=== PATIENT | female | born 1940 | race Caucasian/White ===

== ENCOUNTER 2024-07-10 11:24 | Outpatient (CLI) | payer MEDICARE, BC ==
[~2024-07-10 11:24] MED LIST: iohexol 350MG/ML 100ml bottle IV ONE
[2024-07-10 11:54] LABS: BASOPHILS # (AUTO) 0.1 X10'3 (0-0.2); BASOPHILS % (AUTO) 0.6 % (0-1); EOSINOPHILS # (AUTO) 0.2 X10'3 (0-0.9); EOSINOPHILS % (AUTO) 1.8 % (0-6); HEMATOCRIT 33.2 % (35.0-45.0); HEMOGLOBIN 10.5 g/dl (12.0-16.0); LYMPHOCYTES # (AUTO) 1.6 X10'3 (1.1-4.8); LYMPHOCYTES % (AUTO) 17.7 % (21-51); MEAN CORPUSCULAR HGB CONC 31.6 g/dL (33.0-36.5); MEAN PLATELET VOLUME 8.7 FL (7.4-10.4); MONOCYTES # (AUTO) 0.6 X10'3 (0-0.9); MONOCYTES % (AUTO) 6.9 % (2-12); NEUTROPHILS # (AUTO) 6.4 X10'3 (1.8-7.7); PLATELET COUNT 211 X10'3 (140-440); RED CELL DISTRIBUTION WIDTH 20.2 % (11.5-14.5); WHITE BLOOD COUNT 8.8 X10'3 (4.5-11.0)
[2024-07-10 12:05] LABS: APTT 35 SECONDS (22-32); INR 2.4 INR; PROTHROMBIN TIME 23.3 SECONDS (9.0-12.0)
[2024-07-10 12:13] LABS: ANISOCYTOSIS 3+; MICROCYTOSIS 1+; PLATELET ESTIMATE NORMAL
[2024-07-10 12:14] LABS: ACANTHOCYTES FEW; ELLIPTOCYTES 1+; HYPOCHROMASIA 1+
[2024-07-10 12:43] LABS: ALANINE AMINOTRANSFERASE 16 U/L (12-78); ALBUMIN 3.1 G/DL (3.4-5.0); ALBUMIN/GLOBULIN RATIO 0.9 (1.1-1.5); ALKALINE PHOSPHATASE 75 IU/L (46-116); ANION GAP 11 (8-16); ASPARTATE AMINO TRANSFERASE 21 U/L (10-37); BILIRUBIN,TOTAL 0.9 MG/DL (0.1-1.0); BLOOD UREA NITROGEN 38 MG/DL (7-18); BUN/CREATININE RATIO 31.1 (10.0-20.0); CALCIUM 8.2 MG/DL (8.5-10.1); CHLORIDE 106 MMOL/L (99-107); CREATININE 1.22 MG/DL (0.40-0.90); GLUCOSE 114 MG/DL (70-104); POTASSIUM 4.1 MMOL/L (3.5-5.1); SODIUM 141 MMOL/L (135-145); TOTAL CARBON DIOXIDE 24.1 MMOL/L (24-32); TOTAL PROTEIN 6.5 G/DL (6.4-8.2); eGFR 42 ML/MIN
[2024-07-10 12:51] LABS: PRO BRAIN NATRIURETIC PEPTIDE 9631 PG/ML (0-450)
[2024-07-17] MEDS ORDERED: LISI40TA13 PO (10:45)
[2024-07-17] MEDS ORDERED: FURO-150 PO (10:45)
[2024-07-17] MEDS ORDERED: POTA20PA40 PO (10:45)
[2024-07-17] MEDS ORDERED: EMPA25TA PO (10:45)
[2024-07-17] MEDS ORDERED: CLOP-32 PO (10:45)
[2024-07-17] MEDS ORDERED: ATOR40TA PO (10:45)
[2024-07-17] MEDS ORDERED: SEMA1PEN3 SUBCUT (10:45)
[2024-07-17] MEDS ORDERED: FLUT1BLS13 INH (10:45)
[2024-07-17] MEDS ORDERED: WARF2.5T82 PO (10:45)
[2024-07-17] MEDS ORDERED: CARSR60C PO (10:45)
[2024-07-17] MEDS ORDERED: INSU100V41 (10:45)
== END 2024-07-10 23:59 | disposition home or self-care (01) ==
LOC: RAD 11:24
PROVIDERS: ATTEND Internal Medicine Cardiovascular Disease
DX: I65.23 Occlusion and stenosis of bilateral carotid arteries (principal); I35.0 Nonrheumatic aortic (valve) stenosis; R06.02 Shortness of breath; K57.30 Diverticulosis of large intestine without perforation or abscess without bleeding; I51.7 Cardiomegaly; J98.11 Atelectasis; J18.1 Lobar pneumonia, unspecified organism; K86.2 Cyst of pancreas; R59.0 Localized enlarged lymph nodes
CPT/HCPCS: 36415; 71046; 71275; 74174; 75572; 80053; 83880; 85008; 85025; 85610; 85730; 93880; Q9967

== ENCOUNTER 2024-07-25 05:24 | Inpatient (IN) | payer MEDICARE, BC ==
[2024-07-17 11:02] LABS: BILIRUBIN,URINE NEGATIVE (Neg); CLARITY,URINE SLIGHTLY CLOUDY (Clear); COLOR,URINE YELLOW (Yellow); GLUCOSE, URINE >=1000 mg/dl (Neg); KETONES,URINE NEGATIVE (Neg); LEUKOCYTE ESTERASE ,URINE NEGATIVE (Neg); NITRITES, URINE NEGATIVE (Neg); OCCULT BLOOD,URINE NEGATIVE (Neg); PH,URINE 5.5 (4.8-8.0); PROTEIN,URINE NEGATIVE (Neg); UROBILINOGEN,URINE 0.2 E.U/dL (0.2-1.0)
[2024-07-17 11:03] LABS: BASOPHILS # (AUTO) 0.1 X10'3 (0-0.2); BASOPHILS % (AUTO) 0.7 % (0-1); EOSINOPHILS # (AUTO) 0.2 X10'3 (0-0.9); EOSINOPHILS % (AUTO) 2.9 % (0-6); LYMPHOCYTES # (AUTO) 1.1 X10'3 (1.1-4.8); LYMPHOCYTES % (AUTO) 14.2 % (21-51); MEAN CORPUSCULAR HGB CONC 30.9 g/dL (33.0-36.5); MEAN CORPUSCULAR VOLUME 77.7 FL (78-98); MEAN PLATELET VOLUME 9.2 FL (7.4-10.4); MONOCYTES # (AUTO) 0.6 X10'3 (0-0.9); MONOCYTES % (AUTO) 7.5 % (2-12); NEUTROPHILS # (AUTO) 5.7 X10'3 (1.8-7.7); NEUTROPHILS % (AUTO) 74.7 % (42-75); PRE OP HEMATOCRIT 34.3 % (35.0-45.0); PRE OP PLATELET COUNT 186 X10'3 (140-440); PRE OP WHITE BLOOD COUNT 7.6 10'3 (4.8-10.8); RED BLOOD COUNT 4.41 X10'6 (4.20-5.60); RED CELL DISTRIBUTION WIDTH 20.6 % (11.5-14.5)
[2024-07-17 11:07] LABS: PRE OP HEMOGLOBIN 10.6 g/dL (12.0-16.0)
[2024-07-17 11:12] LABS: UA COLLECTION TYPE VOIDED
[2024-07-17 11:23] LABS: ANISOCYTOSIS 3+; MICROCYTOSIS 1+; PLATELET ESTIMATE NORMAL
[2024-07-17 11:24] LABS: ELLIPTOCYTES FEW
[2024-07-17 11:25] LABS: PRE OP PROTIME 28.2 SECONDS (9.0-12.0)
[2024-07-17 11:26] LABS: BACTERIA,URINE 4+ /HPF (Neg); SQUAMOUS EPITHELIAL CELL,UR FEW /LPF (FEW)
[2024-07-17 11:28] LABS: RBC,URINE 0-2 /HPF (0-2)
[2024-07-17 11:29] LABS: WBC CLUMPS,URINE FEW /HPF (NEGATIVE)
[2024-07-17 11:30] LABS: TRANSITIONAL EPI CELLS,URINE FEW /HPF
[2024-07-17 11:33] LABS: PRE OP INR 2.9 INR
[2024-07-17 11:44] LABS: ALBUMIN 3.2 G/DL (3.4-5.0); ALBUMIN/GLOBULIN RATIO 0.8 (1.1-1.5); ALKALINE PHOSPHATASE 65 IU/L (46-116); BLOOD UREA NITROGEN 33 MG/DL (7-18); BUN/CREATININE RATIO 33.7 (10.0-20.0); CALCIUM 8.3 MG/DL (8.5-10.1); CHLORIDE 106 MMOL/L (99-107); CREATININE 0.98 MG/DL (0.40-0.90); PRE OP ANION GAP 9 (8-16); PRE OP AST 14 U/L (10-37); PRE OP BILIRUB, TOTAL 1.3 MG/DL (0.0-1.0); PRE OP GLUCOSE 116 MG/DL (70-104); PRE OP POTASSIUM 3.4 MMOL/L (3.4-5.1); PRE OP SODIUM 143 MMOL/L (135-145); TOTAL CARBON DIOXIDE 27.6 MMOL/L (24-32); eGFR 54 ML/MIN
[2024-07-17 12:30] LABS: PRE OP ALT 19 U/L (30-65); PRO BRAIN NATRIURETIC PEPTIDE 11791 PG/ML (0-450)
[~2024-07-25] VITALS: Ht 162.6 cm; Wt 80.1 kg
[2024-07-25] VITALS (16 sets, daily range): BP systolic 92–154; BP diastolic 60–82; PULSE 59–120; RESP 13–20; TEMP 97–97.5; O2SAT 92–99
[~2024-07-25 05:24] MED LIST changes: +ATOR40TA PO; +CLOP-32 PO; +DILT360C52 PO; +EMPA25TA PO; +FLUT1BLS13 INH; +FURO-150 PO; +INSU100V41; +LISI40TA13 PO; +POTA-208 PO; +SEMA1PEN3 SUBCUT; +WARF2.5T82 PO; -iohexol 350MG/ML 100ml bottle IV ONE
[2024-07-25] MEDS: aspirin 325mg tablet PO ONE (05:30)
[2024-07-25] MEDS: DOCUMENT DATE & TIME OF BETA-BLOCKER PO ONE (05:30)
[2024-07-25] MEDS: famotidine 20mg tablet PO ONE (05:30)
[2024-07-25] MEDS ORDERED: protamine sulfate 10mg/ml inj. ONE (06:19)
[2024-07-25] MEDS ORDERED: iohexol 350MG/ML 100ml bottle IV ONE ×2 (06:39→12:49)
[2024-07-25] MEDS ORDERED: heparin 1,000 UNITS/NS 500ml 1,500 ML ONE ×2 (06:40→12:49)
[2024-07-25] MEDS ORDERED: LIDOcaine 1% 30ml preserv. free vial ONE ×2 (06:48→12:49)
[2024-07-25] MEDS: VANCOMYCIN/H2O 1.5g/300mL PB 300 ML IV ONE (06:55)
[2024-07-25] MEDS: ringers solution, lacted 1,000 ML IV SCH (06:55)
[2024-07-25] MEDS: furosemide 40mg/4ml inj IV ONE ×2 (07:12→15:45)
[2024-07-25] MEDS: ondansetron/PF 4mg/2ml inj IV PRN (07:12)
[2024-07-25] MEDS: diltiazem 5mg/ml 5ml inj. IV ONE (07:19)
[2024-07-25 07:26] LABS: INR 2.3 INR; PROTHROMBIN TIME 22.8 SECONDS (9.0-12.0)
[2024-07-25 07:59] LABS: PRE OP PARTIAL THROMB. TIME 43 SECONDS (22-32)
[2024-07-25] MEDS ORDERED: CALCIUM GLUC 1gm/50ml NACL,iso 50 ML IV STA (08:36)
[2024-07-25] MEDS: calcium gluconate 0.46mEq/mL (100mg/mL) inj IV ONE (08:45)
[2024-07-25 09:21] LABS: EOSINOPHILS % (AUTO) 0.3 % (0-6); MONOCYTES # (AUTO) 0.9 X10'3 (0-0.9)
[2024-07-25 09:22] LABS: BASOPHILS % (AUTO) 0.5 % (0-1); LYMPHOCYTES # (AUTO) 1.6 X10'3 (1.1-4.8); LYMPHOCYTES % (AUTO) 19.3 % (21-51); MEAN CORPUSCULAR HEMOGLOBIN 23.4 PG (27.0-31.0); MEAN CORPUSCULAR HGB CONC 30.5 g/dL (33.0-36.5); MEAN CORPUSCULAR VOLUME 76.8 FL (78-98); MEAN PLATELET VOLUME 10.3 FL (7.4-10.4); MONOCYTES % (AUTO) 11.3 % (2-12); NEUTROPHILS # (AUTO) 5.7 X10'3 (1.8-7.7); NEUTROPHILS % (AUTO) 68.6 % (42-75); PRE OP HEMATOCRIT 34.8 % (35.0-45.0); PRE OP PLATELET COUNT 183 X10'3 (140-440); PRE OP WHITE BLOOD COUNT 8.3 10'3 (4.8-10.8); RED BLOOD COUNT 4.53 X10'6 (4.20-5.60)
[2024-07-25 09:25] LABS: ALBUMIN 3.3 G/DL (3.4-5.0); ALBUMIN/GLOBULIN RATIO 0.9 (1.1-1.5); ALKALINE PHOSPHATASE 61 IU/L (46-116); BLOOD UREA NITROGEN 28 MG/DL (7-18); BUN/CREATININE RATIO 20.1 (10.0-20.0); CALCIUM 8.6 MG/DL (8.5-10.1); CHLORIDE 104 MMOL/L (99-107); CREATININE 1.39 MG/DL (0.40-0.90); PRE OP ALT 23 U/L (30-65); PRE OP ANION GAP 15 (8-16); PRE OP AST 54 U/L (10-37); PRE OP BILIRUB, TOTAL 1.6 MG/DL (0.0-1.0); PRE OP GLUCOSE 100 MG/DL (70-104); PRE OP HEMOGLOBIN 10.6 g/dL (12.0-16.0); PRE OP POTASSIUM 4.3 MMOL/L (3.4-5.1); PRE OP SODIUM 139 MMOL/L (135-145); TOTAL CARBON DIOXIDE 19.6 MMOL/L (24-32); TOTAL PROTEIN 7.1 G/DL (6.4-8.2); eCRCL 25 ML/MIN; eGFR 36 ML/MIN
[2024-07-25 09:32] LABS: PRO BRAIN NATRIURETIC PEPTIDE 17688 PG/ML (0-450)
[2024-07-25 10:06] LABS: NUCLEATED RED BLOOD CELLS 2 /100WBC (0-0); TOTAL CELLS COUNTED 100
[2024-07-25 10:07] LABS: ANISOCYTOSIS 3+; ELLIPTOCYTES 1+; HYPOCHROMASIA 1+; MICROCYTOSIS 1+; PLATELET ESTIMATE NORMAL
[2024-07-25 10:08] LABS: BURR CELLS 1+; SCHISTOCYTES FEW
[2024-07-25 10:09] LABS: ACANTHOCYTES 1+
[2024-07-25] MEDS: phytonadione 10 MG/1 ML amp IV ONE (10:59)
[2024-07-25 12:21] LABS: ISTAT CREATININE 1.3 mg/dL (0.6-1.1); ISTAT HGB 10.9 g/dl (12.0-16.0); ISTAT IONIZED CALCIUM 1.18 mmol/L (1.03-1.32); ISTAT K 4.3 mmol/L (3.5-5.1); POC BUN/CREATININE RATIO 19.2 (6.6-38.0)
[2024-07-25] MEDS ORDERED: LIDOcaine 1% (10mg/ml) 2ml vial ONE (12:49)
[2024-07-25] MEDS ORDERED: diltiazem-NS 100mg/100ml 100 ML IV SCH (13:05)
[2024-07-25] MEDS ORDERED: niCARDipine-NS 40mg/200ml IVPB IV SCH (13:05)
[2024-07-25] MEDS ORDERED: [UNRECOGNIZED DRUG - OTHER] IV SCH (13:05)
[2024-07-25] MEDS ORDERED: sevoflurane 250ml liquid IH ONE (13:22)
[2024-07-25] MEDS: ceFAZolin 2gm in dextrose, iso 50 ML IV ONE (13:30)
[2024-07-25] MEDS ORDERED: fentaNYL/PF 50MCG/1 ML 2ML syringe ONE (13:33)
[2024-07-25] MEDS ORDERED: midazolam 1 mg/ML 2ml injection ONE (13:34)
[2024-07-25] MEDS ORDERED: iohexol 350 MG/ML 50ML vial IV ONE (14:04)
[2024-07-25] MEDS ORDERED: dextrose 5% water 500ml 500 ML ONE (14:19)
[2024-07-25] MEDS ORDERED: sugammadex 200mg/2ml injection IV ONE (14:39)
[2024-07-25] MEDS ORDERED: rocuronium 10mg/ml inj IV ONE (14:40)
[2024-07-25] MEDS ORDERED: etomidate 2mg/ml inj. ONE (14:40)
[2024-07-25] MEDS ORDERED: heparin 1,000unit/ml 10ml vial 10 ML ONE (14:40)
[2024-07-25] MEDS ORDERED: ALPRAZolam 0.25mg tablet PO PRN (15:00)
[2024-07-25] MEDS ORDERED: potassium Cl 40MEQ/270ML bag 250 ML IV PRN (15:00)
[2024-07-25] MEDS ORDERED: potassium Cl 40MEQ/1/2NS 520ml 520 ML IV PRN (15:00)
[2024-07-25] MEDS ORDERED: potassium Cl 20 mEq SR tablet PO PRN (15:00)
[2024-07-25] MEDS: normal saline 1000ml 1,000 ML IV SCH (15:00)
[2024-07-25] MEDS ORDERED: diphenhydrAMINE 25mg capsule PO PRN (15:00)
[2024-07-25] MEDS ORDERED: docusate sod 100mg capsule PO PRN (15:00)
[2024-07-25] MEDS ORDERED: labetalol 20mg/4ml (5mg/ml) syringe IV PRN (15:00)
[2024-07-25] MEDS ORDERED: ondansetron/PF 4mg/2ml inj IV PRN (15:00)
[2024-07-25] MEDS ORDERED: pantoprazole 40mg Tablet.DR PO PRN (15:00)
[2024-07-25] MEDS ORDERED: potassium CL 10mEq/100ml bag 100 ML IV PRN (15:00)
[2024-07-25] MEDS ORDERED: potassium Cl 20mEq/100mL bag 100 ML IV PRN (15:00)
[2024-07-25] MEDS ORDERED: magnesium sulf-water 2g/50mL 50 ML IV PRN (15:00)
[2024-07-25] MEDS ORDERED: magnesium sulf-water 4G/100mL 100 ML IV PRN (15:00)
[2024-07-25] MEDS ORDERED: proCHLORperazine 10 MG/2 ml inj IV PRN (15:00)
[2024-07-25] MEDS ORDERED: acetaminophen 325mg tablet PO PRN (15:00)
[2024-07-25] MEDS ORDERED: hydrALAZINE 20mg/ml inj. IV PRN (15:00)
[2024-07-25] MEDS: nitroPRUSSIDE (NIPRIDE) (200MCG/ML) 100ML Drip IV SCH (15:05)
[2024-07-25] MEDS: phenylephrine inj 50 MG in normal saline 250ml IV solN IV SCH (15:05)
[2024-07-25] MEDS ORDERED: ceFAZolin 1GM/D5W- ADD-VANTAGE 50 ML IV SCH (16:00)
[2024-07-25] MEDS: sod chloride 0.9% 10ml flush syringe IV SCH (16:00)
[2024-07-25 19:38] LABS: INR 2.3 INR
[2024-07-25] MEDS: vancomycin/NS 1 GM ADD-VANTAGE 250 ML IV SCH (19:54)
[2024-07-25] MEDS: potassium Cl 20 mEq SR tablet PO SCH (19:55)
[2024-07-25] MEDS ORDERED: VANCOMYCIN 1GM 200ML H20 (PEG) 200 ML IV SCH (20:00)
[2024-07-25] MEDS: warfarin 2.5mg tablet PO ONE (21:08)
[2024-07-25] MEDS: ceFAZolin 1GM/D5W- ADD-VANTAGE 50 ML IV SCH (21:09)
[2024-07-26] VITALS (11 sets, daily range): BP systolic 107–135; BP diastolic 45–90; PULSE 80–142; RESP 13–22; TEMP 97–97.8; O2SAT 94–100
[2024-07-26 05:49] LABS: INR 1.8 INR; PROTHROMBIN TIME 18.2 SECONDS (9.0-12.0)
[2024-07-26 05:53] LABS: BASOPHILS # (AUTO) 0.1 X10'3 (0-0.2); HEMOGLOBIN 9.7 g/dl (12.0-16.0); NEUTROPHILS # (AUTO) 6.3 X10'3 (1.8-7.7); RED CELL DISTRIBUTION WIDTH 20.9 % (11.5-14.5); WHITE BLOOD COUNT 9.2 X10'3 (4.5-11.0)
[2024-07-26 05:59] LABS: BASOPHILS % (AUTO) 0.6 % (0-1); EOSINOPHILS % (AUTO) 0.5 % (0-6); HEMATOCRIT 31.9 % (35.0-45.0); LYMPHOCYTES # (AUTO) 1.8 X10'3 (1.1-4.8); LYMPHOCYTES % (AUTO) 19.4 % (21-51); MEAN CORPUSCULAR HEMOGLOBIN 23.1 PG (27.0-31.0); MEAN CORPUSCULAR HGB CONC 30.4 g/dL (33.0-36.5); MEAN CORPUSCULAR VOLUME 76.1 FL (78-98); MEAN PLATELET VOLUME 10.1 FL (7.4-10.4); MONOCYTES % (AUTO) 11.1 % (2-12); NEUTROPHILS % (AUTO) 68.4 % (42-75); PLATELET COUNT 129 X10'3 (140-440); RED BLOOD COUNT 4.19 X10'6 (4.20-5.60)
[2024-07-26 06:02] LABS: ALANINE AMINOTRANSFERASE 231 U/L (12-78); ALBUMIN 2.8 G/DL (3.4-5.0); ALBUMIN/GLOBULIN RATIO 0.9 (1.1-1.5); ALKALINE PHOSPHATASE 52 IU/L (46-116); ANION GAP 10 (8-16); ASPARTATE AMINO TRANSFERASE 407 U/L (10-37); BILIRUBIN,TOTAL 1.2 MG/DL (0.1-1.0); BLOOD UREA NITROGEN 35 MG/DL (7-18); BUN/CREATININE RATIO 25.2 (10.0-20.0); CALCIUM 8.1 MG/DL (8.5-10.1); CHLORIDE 104 MMOL/L (99-107); CREATININE 1.39 MG/DL (0.40-0.90); GLUCOSE 104 MG/DL (70-104); MAGNESIUM 1.9 MG/DL (1.5-2.4); POTASSIUM 4.3 MMOL/L (3.5-5.1); SODIUM 136 MMOL/L (135-145); eCRCL 25 ML/MIN; eGFR 36 ML/MIN
[2024-07-26] MEDS: metoprolol tartrate 50mg tablet PO ONE (06:10)
[2024-07-26] MEDS ORDERED: warfarin 2.5mg tablet PO SCH (08:00)
[2024-07-26] MEDS ORDERED: diltiazem CD 180mg cap (once-daily) PO SCH (08:00)
[2024-07-26] MEDS: atorvastatin 20mg tablet PO SCH (08:26)
[2024-07-26] MEDS: lisinopril 20mg tablet PO SCH (08:27)
[2024-07-26] MEDS: furosemide 20MG tablet PO SCH (08:28)
[2024-07-26] MEDS: clopidogrel 75mg tablet PO SCH (08:28)
[2024-07-26] MEDS: metoprolol tartrate 50mg tablet PO SCH (08:29)
[2024-07-26] MEDS: carVEDilol 12.5mg tablet PO SCH (12:48)
[2024-07-26] MEDS: lactose-reduced food (Ensure High Protein) 237ml bottle PO SCH (18:00)
[2024-07-26] MEDS: warfarin 3mg tablet PO ONE (21:16)
[2024-07-27 02:00] VITALS: BP 100/51; PULSE 93; RESP 12; TEMP 97.2
[2024-07-27 06:05] LABS: INR 1.4 INR; PROTHROMBIN TIME 14.2 SECONDS (9.0-12.0)
[2024-07-27 08:00] VITALS: RESP 13; O2SAT 94
[2024-07-27] MEDS: lisinopril 10 MG tablet PO SCH (08:00)
[2024-07-27] MEDS ORDERED: CARV12.545 PO (08:10)
[2024-07-27] MEDS ORDERED: LISI10TA27 PO (08:10)
[2024-07-27 10:44] VITALS: BP 107/53; PULSE 94; RESP 17; TEMP 97.2; O2SAT 95
[2024-07-27] MEDS ORDERED: warfarin 5mg tablet PO ONE (21:00)
== END 2024-07-27 15:46 | disposition home or self-care (01) | DRG 266 ==
LOC: PAS IN 05:24 → PCU 3S 16:21
PROVIDERS: ADMIT Internal Medicine Cardiovascular Disease; ATTEND Internal Medicine Cardiovascular Disease
PROC: 03HY32Z Insertion of Monitoring Device into Upper Artery, Percutaneous Approach (ICD-10-PCS; 2024-07-25)
PROC: B41D1ZZ Fluoroscopy of Aorta and Bilateral Lower Extremity Arteries using Low Osmolar Contrast (ICD-10-PCS; 2024-07-25)
PROC: 02RF38Z Replacement of Aortic Valve with Zooplastic Tissue, Percutaneous Approach (ICD-10-PCS; principal; 2024-07-25 13:22)
DX: I35.0 Nonrheumatic aortic (valve) stenosis (principal); Z00.6 Encounter for examination for normal comparison and control in clinical research program; I50.23 Acute on chronic systolic (congestive) heart failure; I48.91 Unspecified atrial fibrillation; I25.10 Atherosclerotic heart disease of native coronary artery without angina pectoris; Z79.899 Other long term (current) drug therapy; I49.5 Sick sinus syndrome; Z95.0 Presence of cardiac pacemaker
CPT/HCPCS: 33361; 36415; 71045; 76937; 80047; 80053; 81001; 82948; 83036; 83735; 83880; 85007; 85008; 85025; 85347; 85610; 85730; 86885; 86900; 86901; 86920; 87077; 87081; 87088; 87186; 93005; 93308; 97116; 97161; 97530; A4314; A4615; A4618; A6258; A6449; C1756; C1760; C1769; C1894; G0378; J0610; J0690; J1644; J1940; J2003; J2250; J2371; J2405; J2720; J3010; J3370; J3372; J3430; J3490; J7030; J7040; J7050; J7060; J7120; Q9967

== ENCOUNTER 2024-07-28 16:08 | Inpatient (IN) | payer MEDICARE, BC ==
[~2024-07-28] VITALS: Ht 165.1 cm; Wt 82.0 kg
[~2024-07-28 16:08] MED LIST changes: +CARV12.545 PO; -DILT360C52 PO; +LISI10TA27 PO; -LISI40TA13 PO
[2024-07-28 16:59] LABS: BASOPHILS # (AUTO) 0.1 X10'3 (0-0.2); BASOPHILS % (AUTO) 0.7 % (0-1); EOSINOPHILS # (AUTO) 0.1 X10'3 (0-0.9); EOSINOPHILS % (AUTO) 1.1 % (0-6); HEMATOCRIT 30.3 % (35.0-45.0); HEMOGLOBIN 9.1 g/dl (12.0-16.0); LYMPHOCYTES # (AUTO) 1.4 X10'3 (1.1-4.8); MEAN CORPUSCULAR HEMOGLOBIN 22.9 PG (27.0-31.0); MEAN CORPUSCULAR HGB CONC 30.2 g/dL (33.0-36.5); MEAN PLATELET VOLUME 10.1 FL (7.4-10.4); MONOCYTES # (AUTO) 0.8 X10'3 (0-0.9); MONOCYTES % (AUTO) 9.7 % (2-12); NEUTROPHILS # (AUTO) 5.6 X10'3 (1.8-7.7); NEUTROPHILS % (AUTO) 70.5 % (42-75); PLATELET COUNT 121 X10'3 (140-440); RED BLOOD COUNT 3.98 X10'6 (4.20-5.60); RED CELL DISTRIBUTION WIDTH 20.9 % (11.5-14.5); WHITE BLOOD COUNT 7.9 X10'3 (4.5-11.0)
[2024-07-28 17:10] LABS: ALANINE AMINOTRANSFERASE 104 U/L (12-78); ALBUMIN 2.9 G/DL (3.4-5.0); ALBUMIN/GLOBULIN RATIO 0.8 (1.1-1.5); ALKALINE PHOSPHATASE 72 IU/L (46-116); ANION GAP 8 (8-16); ASPARTATE AMINO TRANSFERASE 120 U/L (10-37); BILIRUBIN,TOTAL 0.7 MG/DL (0.1-1.0); BLOOD UREA NITROGEN 44 MG/DL (7-18); BUN/CREATININE RATIO 37.3 (10.0-20.0); CALCIUM 8.4 MG/DL (8.5-10.1); CHLORIDE 103 MMOL/L (99-107); CREATININE 1.18 MG/DL (0.40-0.90); GLUCOSE 114 MG/DL (70-104); POTASSIUM 5.4 MMOL/L (3.5-5.1); SODIUM 134 MMOL/L (135-145); TOTAL CARBON DIOXIDE 22.6 MMOL/L (24-32); TOTAL PROTEIN 6.7 G/DL (6.4-8.2); eGFR 43 ML/MIN
[2024-07-28 17:19] LABS: PRO BRAIN NATRIURETIC PEPTIDE 11335 PG/ML (0-450)
[2024-07-28 21:01] LABS: APTT 30 SECONDS (22-32); INR 1.3 INR; PROTHROMBIN TIME 13.2 SECONDS (9.0-12.0)
[2024-07-28] MEDS ORDERED: magnesium hydroxide 30ml (MOM) UD suspension PO PRN (22:25)
[2024-07-28] MEDS ORDERED: potassium Cl 20 mEq SR tablet PO PRN ×2 (22:25)
[2024-07-28] MEDS ORDERED: ondansetron/PF 4mg/2ml inj IV PRN (22:25)
[2024-07-28] MEDS ORDERED: mag hydrox/Alum hydrox/simeth 30ml oral suspension PO PRN (22:25)
[2024-07-28] MEDS ORDERED: magnesium sulf-water 2g/50mL 50 ML IV PRN (22:25)
[2024-07-28] MEDS ORDERED: morphine 2 MG/ML inj. syringe IV PRN ×2 (22:25)
[2024-07-28] MEDS: heparin 10,000 units/1 ML INJ IV ONE (22:25)
[2024-07-28] MEDS ORDERED: acetaminophen 325mg tablet PO PRN (22:25)
[2024-07-28] MEDS ORDERED: potassium Cl 40MEQ/1/2NS 520ml 520 ML IV PRN (22:25)
[2024-07-28] MEDS ORDERED: magnesium sulf-water 4G/100mL 100 ML IV PRN (22:25)
[2024-07-28] MEDS ORDERED: heparin 10,000 units/1 ML INJ IV PRN (22:25)
[2024-07-28] MEDS ORDERED: magnesium Cl slow-release 64mg tablet PO PRN (22:25)
[2024-07-28] MEDS: clopidogrel 300mg tablet PO ONE (22:30)
[2024-07-28 23:12] LABS: BASOPHILS % (AUTO) 0.4 % (0-1); EOSINOPHILS # (AUTO) 0.1 X10'3 (0-0.9); HEMATOCRIT 31.1 % (35.0-45.0); HEMOGLOBIN 9.4 g/dl (12.0-16.0); LYMPHOCYTES # (AUTO) 1.8 X10'3 (1.1-4.8); LYMPHOCYTES % (AUTO) 24.3 % (21-51); MEAN CORPUSCULAR HEMOGLOBIN 22.9 PG (27.0-31.0); MEAN CORPUSCULAR HGB CONC 30.2 g/dL (33.0-36.5); MEAN CORPUSCULAR VOLUME 75.6 FL (78-98); MEAN PLATELET VOLUME 9.6 FL (7.4-10.4); MONOCYTES # (AUTO) 0.7 X10'3 (0-0.9); MONOCYTES % (AUTO) 9.5 % (2-12); NEUTROPHILS # (AUTO) 4.8 X10'3 (1.8-7.7); NEUTROPHILS % (AUTO) 64.8 % (42-75); PLATELET COUNT 118 X10'3 (140-440); RED BLOOD COUNT 4.11 X10'6 (4.20-5.60); RED CELL DISTRIBUTION WIDTH 20.4 % (11.5-14.5); WHITE BLOOD COUNT 7.4 X10'3 (4.5-11.0)
[2024-07-28] MEDS: normal saline 1000ml 1,000 ML IV SCH (23:29)
[2024-07-28 23:31] LABS: APTT 31 SECONDS (22-32); INR 1.3 INR; PROTHROMBIN TIME 13.3 SECONDS (9.0-12.0)
[2024-07-28] MEDS: heparin 25,000 UNIT/250ml bag 250 ML IV PRN (23:42)
[2024-07-28] MEDS: SODIUM ZIRCONIUM CYCLOSILICATE 10 GM POWD.PACK PO ONE (23:59)
[2024-07-29] VITALS (13 sets, daily range): BP systolic 103–130; BP diastolic 55–88; PULSE 82–101; RESP 13–21; TEMP 97–98.5; O2SAT 96–100
[2024-07-29] MEDS: furosemide 10 MG/1 ML 10ml inj IV ONE (00:04)
[2024-07-29] MEDS: MESSAGE TO NURSING IV ONE (00:34)
[2024-07-29 02:09] LABS: BILIRUBIN,URINE NEGATIVE (Neg); CLARITY,URINE CLEAR (Clear); COLOR,URINE YELLOW (Yellow); GLUCOSE, URINE >=1000 mg/dl (Neg); KETONES,URINE NEGATIVE (Neg); LEUKOCYTE ESTERASE ,URINE TRACE (Neg); OCCULT BLOOD,URINE NEGATIVE (Neg); PH,URINE 5.5 (4.8-8.0); PROTEIN,URINE NEGATIVE (Neg); UROBILINOGEN,URINE 0.2 E.U/dL (0.2-1.0)
[2024-07-29 02:14] LABS: UA COLLECTION TYPE NON-SPECIFIED
[2024-07-29 02:15] LABS: NITRITES, URINE NEGATIVE (Neg)
[2024-07-29 02:16] LABS: BACTERIA,URINE FEW /HPF (Neg); RBC,URINE 0-2 /HPF (0-2); SQUAMOUS EPITHELIAL CELL,UR NONE SEEN /LPF (FEW); WBC,URINE 0-4 /HPF (0-4); YEAST MANY /HPF (NEGATIVE)
[2024-07-29] MEDS ORDERED: furosemide 10 MG/1 ML 10ml inj IV SCH (08:00)
[2024-07-29] MEDS: lisinopril 5mg tablet PO SCH (08:00)
[2024-07-29] MEDS ORDERED: lisinopril 10 MG tablet PO SCH (08:00)
[2024-07-29] MEDS ORDERED: carVEDilol 12.5mg tablet PO SCH (08:00)
[2024-07-29] MEDS ORDERED: K and/or MAG REPLACEMENT MC SCH (08:00)
[2024-07-29] MEDS ORDERED: furosemide 20 MG/2 ML vial IV SCH (08:00)
[2024-07-29] MEDS ORDERED: warfarin 2.5mg tablet PO SCH (08:00)
[2024-07-29 08:06] LABS: BASOPHILS # (AUTO) 0.1 X10'3 (0-0.2); BASOPHILS % (AUTO) 1.4 % (0-1); EOSINOPHILS # (AUTO) 0.1 X10'3 (0-0.9); EOSINOPHILS % (AUTO) 1.7 % (0-6); HEMATOCRIT 30.5 % (35.0-45.0); LYMPHOCYTES # (AUTO) 1.7 X10'3 (1.1-4.8); LYMPHOCYTES % (AUTO) 27.2 % (21-51); MEAN CORPUSCULAR HEMOGLOBIN 22.8 PG (27.0-31.0); MEAN CORPUSCULAR HGB CONC 29.4 g/dL (33.0-36.5); MEAN CORPUSCULAR VOLUME 77.7 FL (78-98); MEAN PLATELET VOLUME 9.7 FL (7.4-10.4); MONOCYTES # (AUTO) 0.7 X10'3 (0-0.9); MONOCYTES % (AUTO) 10.3 % (2-12); NEUTROPHILS # (AUTO) 3.8 X10'3 (1.8-7.7); NEUTROPHILS % (AUTO) 59.4 % (42-75); PLATELET COUNT 155 X10'3 (140-440); RED BLOOD COUNT 3.93 X10'6 (4.20-5.60); RED CELL DISTRIBUTION WIDTH 20.9 % (11.5-14.5); WHITE BLOOD COUNT 6.4 X10'3 (4.5-11.0)
[2024-07-29] MEDS ORDERED: nitroGLYCERIN 0.4mg SUBLingual tab SL PRN (08:15)
[2024-07-29 08:42] LABS: ANISOCYTOSIS 3+; LARGE PLATELETS FEW; MICROCYTOSIS 1+; NUCLEATED RED BLOOD CELLS 3 /100WBC (0-0); PLATELET ESTIMATE NORMAL; TOTAL CELLS COUNTED 100
[2024-07-29 08:43] LABS: ACANTHOCYTES FEW; BURR CELLS 1+; ELLIPTOCYTES 2+; HYPOCHROMASIA 1+
[2024-07-29 08:44] LABS: POLYCHROMASIA FEW
[2024-07-29] MEDS: furosemide 20 MG/2 ML vial IV SCH ×2 (09:54→14:30)
[2024-07-29] MEDS: atorvastatin 20mg tablet PO SCH (09:54)
[2024-07-29] MEDS: carvedilol 6.25mg tablet PO SCH (09:54)
[2024-07-29] MEDS: docusate sod 100mg capsule PO SCH (09:55)
[2024-07-29] MEDS: potassium Cl 20 mEq SR tablet PO SCH (09:55)
[2024-07-29] MEDS: clopidogrel 75mg tablet PO SCH (09:55)
[2024-07-29] MEDS: EMPAGLIFLOZIN 25 MG TABLET PO SCH (10:08)
[2024-07-29] MEDS: PATIROMER CALCIUM SORBITEX 8.4 GM POWD.PACK PO ONE (13:00)
[2024-07-29 14:42] LABS: EOSINOPHILS # (AUTO) 0.1 X10'3 (0-0.9); HEMOGLOBIN 8.9 g/dl (12.0-16.0); MONOCYTES # (AUTO) 0.4 X10'3 (0-0.9); NEUTROPHILS % (AUTO) 73.4 % (42-75); RED CELL DISTRIBUTION WIDTH 21.3 % (11.5-14.5)
[2024-07-29 14:43] LABS: BASOPHILS % (AUTO) 0.8 % (0-1); EOSINOPHILS % (AUTO) 1.4 % (0-6); HEMATOCRIT 29.2 % (35.0-45.0); LYMPHOCYTES # (AUTO) 0.8 X10'3 (1.1-4.8); MEAN CORPUSCULAR HEMOGLOBIN 23.2 PG (27.0-31.0); MEAN CORPUSCULAR HGB CONC 30.5 g/dL (33.0-36.5); MEAN PLATELET VOLUME 9.8 FL (7.4-10.4); MONOCYTES % (AUTO) 8.4 % (2-12); NEUTROPHILS # (AUTO) 3.8 X10'3 (1.8-7.7); PLATELET COUNT 124 X10'3 (140-440); RED BLOOD COUNT 3.85 X10'6 (4.20-5.60); WHITE BLOOD COUNT 5.1 X10'3 (4.5-11.0)
[2024-07-29 15:00] LABS: INR 1.4 INR; PROTHROMBIN TIME 14.4 SECONDS (9.0-12.0)
[2024-07-29 15:02] LABS: ALANINE AMINOTRANSFERASE 86 U/L (12-78); ALBUMIN/GLOBULIN RATIO 0.8 (1.1-1.5); ALKALINE PHOSPHATASE 85 IU/L (46-116); ANION GAP 5 (8-16); ASPARTATE AMINO TRANSFERASE 75 U/L (10-37); BILIRUBIN,TOTAL 0.7 MG/DL (0.1-1.0); BLOOD UREA NITROGEN 45 MG/DL (7-18); BUN/CREATININE RATIO 35.7 (10.0-20.0); CALCIUM 8.2 MG/DL (8.5-10.1); CHLORIDE 104 MMOL/L (99-107); CREATININE 1.26 MG/DL (0.40-0.90); GLUCOSE 125 MG/DL (70-104); POTASSIUM 4.4 MMOL/L (3.5-5.1); SODIUM 137 MMOL/L (135-145); TOTAL PROTEIN 6.6 G/DL (6.4-8.2); eCRCL 29 ML/MIN; eGFR 40 ML/MIN
[2024-07-29] MEDS ORDERED: CLOP-32 PO (18:12)
[2024-07-29] MEDS: warfarin 5mg tablet PO ONE (22:24)
[2024-07-30] VITALS (10 sets, daily range): BP systolic 112–153; BP diastolic 65–99; PULSE 58–123; RESP 16–22; TEMP 97.5–98.5; O2SAT 95–100
[2024-07-30 07:15] LABS: BASOPHILS % (AUTO) 0.6 % (0-1); EOSINOPHILS % (AUTO) 1.6 % (0-6); HEMATOCRIT 29.5 % (35.0-45.0); LYMPHOCYTES # (AUTO) 1.1 X10'3 (1.1-4.8); LYMPHOCYTES % (AUTO) 16.4 % (21-51); MEAN CORPUSCULAR HEMOGLOBIN 23.2 PG (27.0-31.0); MEAN CORPUSCULAR HGB CONC 30.6 g/dL (33.0-36.5); MEAN PLATELET VOLUME 10.1 FL (7.4-10.4); MONOCYTES # (AUTO) 0.7 X10'3 (0-0.9); MONOCYTES % (AUTO) 9.5 % (2-12); NEUTROPHILS % (AUTO) 71.9 % (42-75); PLATELET COUNT 129 X10'3 (140-440); RED BLOOD COUNT 3.89 X10'6 (4.20-5.60)
[2024-07-30 07:16] LABS: EOSINOPHILS # (AUTO) 0.1 X10'3 (0-0.9)
[2024-07-30 08:15] LABS: ALANINE AMINOTRANSFERASE 65 U/L (12-78); ALBUMIN 2.8 G/DL (3.4-5.0); ALBUMIN/GLOBULIN RATIO 0.8 (1.1-1.5); ALKALINE PHOSPHATASE 69 IU/L (46-116); ANION GAP 10 (8-16); ASPARTATE AMINO TRANSFERASE 52 U/L (10-37); BILIRUBIN,TOTAL 0.7 MG/DL (0.1-1.0); BLOOD UREA NITROGEN 40 MG/DL (7-18); BUN/CREATININE RATIO 33.9 (10.0-20.0); CALCIUM 8.2 MG/DL (8.5-10.1); CHLORIDE 104 MMOL/L (99-107); CREATININE 1.18 MG/DL (0.40-0.90); GLUCOSE 134 MG/DL (70-104); POTASSIUM 4.2 MMOL/L (3.5-5.1); SODIUM 137 MMOL/L (135-145); TOTAL PROTEIN 6.4 G/DL (6.4-8.2); eCRCL 31 ML/MIN; eGFR 43 ML/MIN
[2024-07-30 08:49] LABS: INR 1.6 INR; PROTHROMBIN TIME 16.3 SECONDS (9.0-12.0)
[2024-07-30 15:24] LABS: % IRON SATURATION 3 % (11-46); IRON 13 UG/DL (49-151); TOTAL IRON BINDING CAPACITY 383 UG/DL (259-388)
[2024-07-30 21:36] LABS: INR 1.7 INR
[2024-07-30 21:37] LABS: PROTHROMBIN TIME 17.3 SECONDS (9.0-12.0)
[2024-07-30] MEDS: warfarin 5mg tablet PO ONE (23:34)
[2024-07-31] MEDS: normal saline 500ml IV soln 500 ML IV ONE (00:13)
[2024-07-31 02:00] VITALS: BP 145/79; PULSE 118; RESP 21; TEMP 98.5; O2SAT 96
[2024-07-31 06:45] LABS: BASOPHILS # (AUTO) 0.1 X10'3 (0-0.2); BASOPHILS % (AUTO) 0.6 % (0-1); EOSINOPHILS # (AUTO) 0.1 X10'3 (0-0.9); EOSINOPHILS % (AUTO) 1.2 % (0-6); HEMATOCRIT 28.9 % (35.0-45.0); HEMOGLOBIN 8.7 g/dl (12.0-16.0); LYMPHOCYTES # (AUTO) 1.4 X10'3 (1.1-4.8); LYMPHOCYTES % (AUTO) 16.2 % (21-51); MEAN CORPUSCULAR HEMOGLOBIN 22.6 PG (27.0-31.0); MEAN CORPUSCULAR HGB CONC 30.2 g/dL (33.0-36.5); MEAN CORPUSCULAR VOLUME 74.9 FL (78-98); MEAN PLATELET VOLUME 10.3 FL (7.4-10.4); MONOCYTES # (AUTO) 0.9 X10'3 (0-0.9); MONOCYTES % (AUTO) 9.7 % (2-12); NEUTROPHILS # (AUTO) 6.4 X10'3 (1.8-7.7); NEUTROPHILS % (AUTO) 72.3 % (42-75); PLATELET COUNT 140 X10'3 (140-440); RED BLOOD COUNT 3.86 X10'6 (4.20-5.60); WHITE BLOOD COUNT 8.8 X10'3 (4.5-11.0)
[2024-07-31 06:46] LABS: INR 1.8 INR; PROTHROMBIN TIME 18.4 SECONDS (9.0-12.0)
[2024-07-31 07:04] LABS: ALANINE AMINOTRANSFERASE 59 U/L (12-78); ALBUMIN 2.7 G/DL (3.4-5.0); ALBUMIN/GLOBULIN RATIO 0.8 (1.1-1.5); ALKALINE PHOSPHATASE 76 IU/L (46-116); ANION GAP 10 (8-16); ASPARTATE AMINO TRANSFERASE 32 U/L (10-37); BILIRUBIN,TOTAL 0.7 MG/DL (0.1-1.0); BLOOD UREA NITROGEN 36 MG/DL (7-18); BUN/CREATININE RATIO 40.4 (10.0-20.0); CALCIUM 8.3 MG/DL (8.5-10.1); CHLORIDE 105 MMOL/L (99-107); CREATININE 0.89 MG/DL (0.40-0.90); GLUCOSE 105 MG/DL (70-104); MAGNESIUM 1.9 MG/DL (1.5-2.4); POTASSIUM 3.9 MMOL/L (3.5-5.1); SODIUM 139 MMOL/L (135-145); TOTAL CARBON DIOXIDE 23.8 MMOL/L (24-32); TOTAL PROTEIN 6.3 G/DL (6.4-8.2); eCRCL 41 ML/MIN; eGFR 60 ML/MIN
[2024-07-31 07:58] VITALS: BP_SYST 138
[2024-07-31 08:00] VITALS: RESP 17; O2SAT 94
[2024-07-31 08:16] VITALS: PULSE 70; RESP 18; O2SAT 97
== END 2024-07-31 09:00 | DRG 280 ==
LOC: ER 16:09 → ED HOLD 22:20 → PCU 3S 07-29 13:42
PROVIDERS: ADMIT Surgery Surgical Critical Care; ATTEND Nurse Practitioner Family
DX: I21.4 Non-ST elevation (NSTEMI) myocardial infarction (principal); I50.23 Acute on chronic systolic (congestive) heart failure; I13.0 Hypertensive heart and chronic kidney disease with heart failure and stage 1 through stage 4 chronic kidney disease, or unspecified chronic kidney disease; N17.9 Acute kidney failure, unspecified; G47.00 Insomnia, unspecified; I48.91 Unspecified atrial fibrillation; R62.7 Adult failure to thrive; E87.5 Hyperkalemia; D50.9 Iron deficiency anemia, unspecified; G47.33 Obstructive sleep apnea (adult) (pediatric); R74.01 Elevation of levels of liver transaminase levels; E11.22 Type 2 diabetes mellitus with diabetic chronic kidney disease; Z88.5 Allergy status to narcotic agent; Z79.84 Long term (current) use of oral hypoglycemic drugs; Z79.899 Other long term (current) drug therapy; Z79.01 Long term (current) use of anticoagulants; Z95.2 Presence of prosthetic heart valve; Z95.0 Presence of cardiac pacemaker; Z95.5 Presence of coronary angioplasty implant and graft; Z90.49 Acquired absence of other specified parts of digestive tract; Z68.30 Body mass index [BMI] 30.0-30.9, adult
CPT/HCPCS: 36415; 71045; 80053; 81001; 82948; 83540; 83550; 83735; 83880; 84466; 84484; 85007; 85025; 85610; 85730; 87081; 87088; 93005; 93308; 93922; 94760; 96365; 96376; 97110; 97116; 97162; 99285; G0378; J1644; J1940; J7030; J7040

== ENCOUNTER 2024-10-15 11:18 | Inpatient (IN) | payer MEDICARE, BC ==
[~2024-10-15] VITALS: Ht 162.6 cm; Wt 81.8 kg
[~2024-10-15 11:18] MED LIST changes: +CARV-49 PO; -CARV12.545 PO; +CHOL-4 PO; -INSU100V41; +LISI-642 PO; -LISI10TA27 PO; -SEMA1PEN3 SUBCUT
[2024-10-15] MEDS ORDERED: iohexol 350 MG/ML 50ML vial IV ONE (13:43)
[2024-10-15] MEDS ORDERED: iohexol 350MG/ML 100ml bottle IV ONE (13:43)
[2024-10-15 13:54] LABS: EOSINOPHILS # (AUTO) 0.2 X10'3 (0-0.9); LYMPHOCYTES # (AUTO) 1.1 X10'3 (1.1-4.8); MEAN PLATELET VOLUME 8.8 FL (7.4-10.4); MONOCYTES # (AUTO) 0.8 X10'3 (0-0.9); NEUTROPHILS # (AUTO) 6.4 X10'3 (1.8-7.7); WHITE BLOOD COUNT 8.5 X10'3 (4.5-11.0)
[2024-10-15 13:55] LABS: BASOPHILS % (AUTO) 0.5 % (0-1); EOSINOPHILS % (AUTO) 1.8 % (0-6); MONOCYTES % (AUTO) 9.6 % (2-12); NEUTROPHILS % (AUTO) 75.1 % (42-75); PLATELET COUNT 280 X10'3 (140-440)
[2024-10-15 14:02] LABS: ALBUMIN 2.3 G/DL (3.4-5.0); ANION GAP 9 (8-16); BLOOD UREA NITROGEN 33 MG/DL (7-18); BUN/CREATININE RATIO 30.6 (10.0-20.0); CHLORIDE 103 MMOL/L (99-107); CREATININE 1.08 MG/DL (0.40-0.90); GLUCOSE 104 MG/DL (70-104); POTASSIUM 4.1 MMOL/L (3.5-5.1); SODIUM 139 MMOL/L (135-145); TOTAL CARBON DIOXIDE 27.5 MMOL/L (24-32); eCRCL 32 ML/MIN; eGFR 48 ML/MIN
[2024-10-15 14:03] LABS: INR 1.5 INR; PROTHROMBIN TIME 15.1 SECONDS (9.0-12.0)
[2024-10-15 14:19] LABS: HEMATOCRIT 33.3 % (35.0-45.0); HEMOGLOBIN 10.3 g/dl (12.0-16.0); MEAN CORPUSCULAR HEMOGLOBIN 22.1 PG (27.0-31.0); MEAN CORPUSCULAR HGB CONC 30.9 g/dL (33.0-36.5); MEAN CORPUSCULAR VOLUME 71.5 FL (78-98); RED BLOOD COUNT 4.65 X10'6 (4.20-5.60); RED CELL DISTRIBUTION WIDTH 24.5 % (11.5-14.5)
[2024-10-15 14:37] LABS: NUCLEATED RED BLOOD CELLS 2 /100WBC (0-0); TOTAL CELLS COUNTED 100
[2024-10-15 14:39] LABS: ANISOCYTOSIS 3+; MICROCYTOSIS 1+; PLATELET ESTIMATE NORMAL
--- NOTE | 2024-10-15 14:59 | Physician Documentation ---
History of Present Illness ~ Chief Complaint: Post-operative complication Stated Complaint: DOC REFERRED Time Seen by MD: 13:19 Primary Medical Doctor: PCP: Becky Source: patient, family () HPI 84-year-old female history of AFib on Eliquis, chronic systolic heart failure EF 35% 07/2024, aortic stenosis status post TAVR, CAD status post PCI, DM, sick sinus syndrome status post ppm presenting with nonhealing surgical site wound. She underwent right fem-pop bypass endarterectomy on September 13, 2024 which has been complicated by wound dehiscence and wound VAC placement. She was seen today by Dr. Handley and sent to the emergency department Reviewed discharge summary September 2024 peripheral artery disease acute limb ischemia status post right fem-pop bypass endarterectomy September 13, 2024 Tetanus within 5 years?: No Medication Reconciliation Allergies: Coded Allergies: oxycodone (Verified Adverse Reaction, Unknown, HALLUCINATIONS, 09/12/24) Scheduled Atorvastatin Calcium* (Lipitor*), 1 TAB PO DAILY, (Reported) Carvedilol (Coreg), 1 TAB PO Q12H, (Reported) Cholecalciferol (Vitamin D3) (Vitamin D3), 1 CAP PO DAILY, (Reported) Clopidogrel Bisulfate (Plavix), 75 MG PO DAILY, (Reported) Empagliflozin (Jardiance), 1 TAB PO DAILY, (Reported) Furosemide (Lasix), 1 TAB PO DAILY, (Reported) Lisinopril* (Zestril*), 1 TAB PO DAILY, (Reported) Potassium Chloride (Potassium Chloride), 1 TAB PO DAILY, (Reported) Warfarin Sodium (Warfarin Sodium), 1 TAB PO DAILY, (Reported) Scheduled PRN Fluticasone Propion/Salmeterol (Fluticasone-Salmeterol 250-50), 1 PUFFS INH Q12H PRN for SOB or wheezing, (Reported) Past Medical History Patient History: FH: stroke MOTHER, Name: VIDHYA THAPA (HIGH BLOOD PRESSURE AND HEART DISEASE), FHx: cancer of prostate FATHER, Alcohol Use: None Drug Use: none Lives with: Spouse Lives In: Home Review of Systems All Other Systems at this time: Reviewed and Negative Constitutional: Denies: fever Physical Exam Vital Signs: Temperature: 96.6, Source: Temporal, Heart Rate: 80, Respiratory Rate: 15, BP: 109/75, Pulse Oximetry: 99, Weight: 81.820 Physical Exam Morbidly obese female no acute distress Abdomen is soft nontender Right lower extremity dehiscence of surgical wounds with serosanguineous discharge and surrounding erythema Progress Progress Note Consulted Dr. Marcelo vascular surgeon who recommends CT angiogram and admission for IV antibiotics to hospitalist service Consulted hospitalist who agrees with management plan and graciously accept for admission Results/Orders Reviewed/noted all lab results: Yes Results/Orders Orders - KATERINA GARCIA MD Culture Blood (10/15/24 13:19) Piperacillin/Tazo 4.5gm/100ml (Zosyn 4.5 (10/15/24 17:55) Vancomycin/Ns 1 Gm Add-Leblanc (Vancomyc (10/15/24 18:11) Page Hospitalist (10/15/24 18:12) Fill Out Med Reconciliation (10/15/24 18:12) Stat Ekg (10/15/24 ) Completed Orders - KATERINA GARCIA MD Cbc/Diff (10/15/24 13:19) BMP (10/15/24 13:19) Lacticsepsis (10/15/24 13:19) Pt Inr (10/15/24 13:20) Iohexol 350mg/Ml 100ml (Omnipaque 350mg/ (10/15/24 13:43) Iohexol 350mg/Ml 50ml Inj (Omnipaque 350 (10/15/24 13:43) Man Diff (10/15/24 13:38) Vancomycin*Pharmacy To Dose* (Vancomycin (10/15/24 17:55) Medications Received in ER Medications (Trade) Dose Ordered Sig/Echo Route PRN Reason Start Time Stop Time Status Last Admin Dose Admin Piperacillin/ Tazobactam/ Dextrose 100 ml @ 25 mls/hr ONCE ONCE IV 10/15/24 17:55 10/15/24 21:54 10/15/24 18:14 25 MLS/HR Vital Signs 10/15/24 10/15/24 10/15/24 10/15/24 11:33 15:39 17:57 18:31 Temp 96.6 Pulse 80 96 101 Resp 15 16 18 17 B/P (MAP) 109/75 143/77 (99) 149/77 (101) 127/105 (112) Pulse Ox 99 100 100 99 Laboratory Tests Test 10/15/24 13:38 White Blood Count 8.5 Red Blood Count 4.65 Hemoglobin 10.3 L Hematocrit 33.3 L Mean Corpuscular Volume 71.5 L Mean Corpuscular Hemoglobin 22.1 L Mean Corpuscular Hemoglobin Concent 30.9 L Red Cell Distribution Width 24.5 H Platelet Count 280 Mean Platelet Volume 8.8 Neutrophils (%) (Auto) 75.1 H Lymphocytes (%) (Auto) 13.0 L Monocytes (%) (Auto) 9.6 Eosinophils (%) (Auto) 1.8 Basophils (%) (Auto) 0.5 Neutrophils # (Auto) 6.4 Lymphocytes # (Auto) 1.1 Monocytes # (Auto) 0.8 Eosinophils # (Auto) 0.2 Basophils # (Auto) 0.0 CBC Comment Differential Total Cells Counted 100 Neutrophils % (Manual) 79.0 H Lymphocytes % (Manual) 12.0 L Monocytes % (Manual) 8.0 Eosinophils % (Manual) 1.0 Nucleated Red Blood Cells 2 H Platelet Estimate Normal Red Blood Cell Morphology Perf Basophilic Stippling Anisocytosis 3+ Microcytosis 1+ Prothrombin Time 15.1 H INR International Normalized Ratio 1.5 Coagulation Comments Sodium Level 139 Potassium Level 4.1 Chloride Level 103 Carbon Dioxide Level 27.5 Anion Gap 9 Blood Urea Nitrogen 33 H Creatinine 1.08 H Estimated GFR/1.73 m2 48 BUN/Creatinine Ratio 30.6 H Glucose Level 104 Lactic Acid Level 1.8 Calcium Level 8.0 L Albumin 2.3 L Chemistry Comments Microbiology Date/Time Source Procedure Growth Status 10/15/24 13:42 Blood Arm Left Blood Culture - Preliminary NEGATIVE (LESS THAN 24 HOURS) Resulted EKG/XRAY/CT/US/VASC/MRI CT : Impression CT angio independently interpreted shows no occlusion Medical Decision Making Additional info obtained from: old records Departure Disposition: ADMITTED INPATIENT Admitted to Inpatient Unit: to hospitalist Impression: Primary Impression: Surgical site infection Referrals: NO PRIMARY CARE PROVIDER (PCP) Signature Scribe Signature: na Attestation: KATERINA Price MD Oct 15, 2024 14:59
[2024-10-15] MEDS: piperacillin/tazo 4.5gm/100ml 100 ML IV ONE (18:14)
[2024-10-15] MEDS ORDERED: magnesium Cl slow-release 64mg tablet PO PRN (19:05)
[2024-10-15] MEDS ORDERED: magnesium sulf-water 4G/100mL 100 ML IV PRN (19:05)
[2024-10-15] MEDS ORDERED: mag hydrox/Alum hydrox/simeth 30ml oral suspension PO PRN (19:05)
[2024-10-15] MEDS ORDERED: acetaminophen 325mg tablet PO PRN (19:05)
[2024-10-15] MEDS ORDERED: magnesium sulf-water 2g/50mL 50 ML IV PRN (19:05)
[2024-10-15] MEDS ORDERED: potassium Cl 20 mEq SR tablet PO PRN ×2 (19:05)
[2024-10-15] MEDS ORDERED: potassium Cl 40MEQ/1/2NS 520ml 520 ML IV PRN (19:05)
[2024-10-15] MEDS ORDERED: magnesium hydroxide 30ml (MOM) UD suspension PO PRN (19:05)
[2024-10-15] MEDS ORDERED: LEVO25TA7 PO (19:16)
[2024-10-15] MEDS ORDERED: HYDR-3686 PO (19:16)
[2024-10-15] MEDS: vancomycin/NS 1 GM ADD-VANTAGE 250 ML IV SCH (19:23)
[2024-10-15] MEDS: normal saline 1000ml 1,000 ML IV SCH (19:28)
[2024-10-15 19:29] LABS: PHOSPHORUS 3.1 MG/DL (2.3-4.5)
[2024-10-15] MEDS: K and/or MAG REPLACEMENT MC SCH (20:00)
[2024-10-15] MEDS ORDERED: albuterol 2.5 MG/3 ML nebule NEB PRN (20:00)
[2024-10-15] MEDS ORDERED: budesonide 0.5mg/2ml UD nebule IH PRN (20:05)
--- NOTE | 2024-10-15 20:07 | HISTORY AND PHYSICAL-Residence ---
History & Physical Providers to CC Resident Creating Document: JOSEYONATANOMID ~ History of Present Illness Primary Medical Doctor: PCP: Becky Reason for Admit\Complaint: Surgical site infected History of Present Illness 84 years old female with history of AFib, CHF with reduced ejection fraction, aortic stenosis status post TAVR, sick sinus syndrome status post ppm, coronary artery disease with recent PCI of the proximal LCX on 07/02, presented with nonhealing surgical site wound. Patient underwent right fem-pop bypass endarterectomy on September 13, 2024 in our hospital transferred to rehab when wound VAC placement. Patient was seen today by Dr. Handley and advised to admission. Patient was in rehab after discharge from our facility. He denied fever or chills shortness of breaths any changes in urinary habits or bowel movement she was ambulating with executive assistant to general counsel. Allergies: Coded Allergies: oxycodone (Verified Adverse Reaction, Unknown, HALLUCINATIONS, 09/12/24) Home Medications Home Medications Active Reported Levothyroxine Sodium 25 Mcg Tablet 1 Tab PO DAILY Atarax* (Hydroxyzine HCl) 25 Mg Tablet 1 Tab PO DAILY Zestril* (Lisinopril) 5 Mg Tablet 1 Tab PO DAILY 30 Days Plavix (Clopidogrel Bisulfate) 75 Mg Tablet 75 Mg PO DAILY Do not stop medication unless instructed by prescriber. Coreg (Carvedilol) 6.25 Mg Tablet 1 Tab PO Q12H 30 Days Potassium Chloride 20 Meq Tab.prt.sr 1 Tab PO DAILY 30 Days Lasix (Furosemide) 20 Mg Tablet 1 Tab PO DAILY 30 Days Fluticasone-Salmeterol 250-50 (Fluticasone Propion/Salmeterol) 250 Mcg-50 Mcg/Dose Blst.w.dev 1 Puffs INH Q12H PRN 30 Days Jardiance (Empagliflozin) 25 Mg Tablet 1 Tab PO DAILY 30 Days Lipitor* (Atorvastatin Calcium) 40 Mg Tablet 1 Tab PO DAILY 30 Days Past Medical History Past Medical History Right lower extremity peripheral vascular disease status post right fem-pop bypass endarterectomy Aortic stenosis status post TAVR Atrial fibrillation CHF with reduced ejection fraction CKD Coronary artery disease with recent PCI of the proximal LCX on 06/2024 Past Surgical History Surgical History Comment Right femoral popliteal bypass 09/13/2024 Coronary artery disease with PCI of proximal LCX on 07/02 Hysterectomy Partial thyroidectomy Cholecystectomy Total knee arthroplasty Permanent pacemaker Family History Family History: FH: stroke MOTHER, Name: VIDHYA THAPA (HIGH BLOOD PRESSURE AND HEART DISEASE), FHx: cancer of prostate FATHER, Past Social History Smoking: Non-Smoker Alcohol Use: None Drug Use: None Lives with: Spouse Lives In: Home ROS ROS The history of present illness included a review of system, which yielded relevant positives and negatives Constitutional: Denies: fever Exam Vitals: Vital Signs Date Time Temp Pulse Resp B/P (MAP) Pulse Ox O2 Delivery O2 Flow Rate FiO2 10/15/24 18:31 101 17 127/105 (112) 99 10/15/24 11:33 96.6 General: General: Awake and Alert, no acute distress. HEENT: Conjunctiva pink, Sclera clear, Mucus Membranes moist. Neck: Supple without masses and tenderness. Resp: Bibasilar Coarse breath sounds Heart: Irregular rate and rhythm, normal S1 and S2 without murmur Abdomen: Soft and non tender no organomegaly Extremities: Left side lower extremity: Called in touch, 2+ edema, weak pulse Right side: Foot: Medial side multiple abrasion, with erythema and mild tenderness no any discharge. Lateral : Small necrotic tissue leg : dehiscence of surgical wounds with serosanguineous discharge and surrounding erythema, swelling, and tenderness Inguinal area: Surgical side mild erythema and mild tenderness Skin: Warm and Dry. Neurological: Speech is clear, alert, and oriented x 4, no gross neurological deficits Diagnostic Data Last Recorded Lab Results: 10/15/24 1338 10/15/24 1338 Diagnostic Data: Laboratory Tests Test 10/15/24 13:38 Prothrombin Time 15.1 SECONDS (9.0-12.0) H INR International Normalized Ratio 1.5 INR Coagulation Comments Advance Care Planning Advanced Care plannin - 30 Minutes Additional Plan 84 years old male with history of CHF with reduced ejection fraction, aortic stenosis status post TAVR, coronary artery disease status post PCI, Wound dehiscence of Fem-pop bypass Infected surgical site No fever, no leukocytosis, lactic acid normal, protocol pending Fem-pop bypass was done on 09/13/24 Blood culture sent, wound culture sent referred by Dr. Handley, appreciate recommendation Hold Plavix for any debridement or surgery, NPO after midnight Zosyn vancomycin started, IV fluid 50 mL/hour, reassess patient tomorrow for IV fluid maintenance Aorta with runoff CTA is pending Paroxysmal AFib Rate controlled now, continue carvedilol 625 b.i.d. Giacomo Vasc score six point, 9.7% stroke risk per year, she is not in Eliquis Due to possible surgery I am not starting Eliquis right now should be consider after surgical plan Heart failure with reduced ejection fraction not in exacerbation 07/30: ECHOCARDIOGRAPHY Normal LV size and moderately reduced function. Mild concentric hypertrophy. LVEF is 35-40%. RV is moderately dilated in size with at least mildly reduced function. Pacemaker wire in right heart. RVSP is estimated at 65 mmHg.Severe biatrial dilation. 23 mm Franklin Keysha 3 Ultra RESILIA Bioprosthetic TAVR appears well seated without perivalvular leak. MARCO is measured at 2.33 cmsq. Peak / mean gradients of 11 / 6 mmHG. Peak velocity is measured at 166 cm/sec. Mild MV annular calcification without stenosis. Moderate regurgitation. Continue carvedilol, Lasix, Jardiance, lisinopril Microcytic hypochromic anemia Iron panel ordered Hyponatremia TSH 20.93, could be due to severe infection at this time, T3 or T4 ordered Continue current medication, repeat TSH Other comorbidities coronary artery disease status post PCI, aortic stenosis status post TAVR, sinus sick syndrome status post ppm Code Status: full DVT prophylaxis: SCDs Analgesia/sedation: Tylenol Line/tube: Peripheral GI prophylaxis: None Nutrition: Regular NPO after midnight for possible plan of surgery Prognosis: Guarded Disposition: Continue medical management with IV antibiotic, waiting for Dr. Handley consultation Yonatan Panchal MD Internal Medicine Resident I discussed case with resident and agree with assessment and plan as above. Akua Hernández MD Critical Care Date of Service: Oct 15, 2024 Billing Provider: AKUA HERNÁNDEZ MD, ELAHE, RES Oct 15, 2024 20:07 AKUA HERNÁNDEZ MD Oct 16, 2024 22:53
[2024-10-15 20:28] LABS: THYROID STIMULATING HORMONE 20.93 ulU/ml (0.34-4.50)
--- NOTE | 2024-10-15 20:54 | RADIOLOGY REPORT ---
CTA ABDOMEN AND PELVIS WITH BILATERAL LOWER EXTREMITY RUNOFFS Clinical Indication: graft occlusion female history of AFib on Eliquis, chronic systolic heart fail ure EF 35% 07/2024, aortic stenosis status post TAVR, CAD status post PCI, DM, sick sinus syndrome st atus post ppm presenting with nonhealing surgical site wound. She underwent right fem-pop bypass enda rterectomy on September 13, 2024 which has been complicated by wound dehiscence and wound VAC placement. She was seen today by Dr. Handley and sent to the emergency department Technique: Multiple contiguous axial images were obtained through the abdomen, pelvis, and both lowe r extremities following the administration of IV contrast material. Post processing coronal and sagi ttal reconstruction images were made from the axial images. Image post-processing was obtained. IV contrast: 100 mL Omnipaque-350 Comparison: None FINDINGS: Lower Thorax: There is cardiomegaly with a small pericardial effusion. There is a transcatheter aorti c valve partially imaged. There is a pacer lead which terminates in the right ventricle. Trace right pleural effusion. Small to moderate left pleural effusion. Liver and Biliary system: Normal-sized liver. There is hepatic steatosis. Prior cholecystectomy. Dila padmini common bile duct no intrahepatic bile duct dilatation. Spleen: Unremarkable. Adrenal Glands and Kidneys: Normal adrenal glands. 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 There is multifocal scarring of the left kidney where there is also hypoenhancement. Asymmetrical ly atrophy of the left kidney. No hydronephrosis or nephrolithiasis. Pancreas and Retroperitoneum: Atrophic pancreas. There is a cystic lesion in the body of the pancreas measuring 1.4 cm on series 4, image 32. There is no retroperitoneal lymphadenopathy. Aorta and Major Vessels: Aortoiliac vessels are patent and normal caliber with [id number] calci fied atherosclerotic plaque. There is a segment of severe stenosis of the origin and proximal SMA by atherosclerotic plaque. Multifocal luminal irregularity and stenosis of the mid and distal SMA. Moder ate stenosis of the proximal left renal artery by atherosclerotic plaque. Patent origin of the celiac axis, single right renal artery, RAMA. Bowel, Mesentery and Peritoneal space: Normal caliber small and large bowel. Moderate distal colonic diverticulosis. Prior appendectomy. There is no free air or fluid collection. Pelvis: There is a Lopez catheter decompressing the urinary bladder. There is no pelvic lymphadenopat hy. Prior hysterectomy. Abdominal wall and Osseous Structures: There is body wall edema. Mild left convexity scoliosis of the lumbar spine. Moderate multilevel lower thoracic and lumbar spondylosis. Surgical change in the righ t inguinal region with skin angela in the low right pelvic abdominal wall into the right inguinal re gion. There is a loculated fluid and mild gas containing collection in the right inguinal region with a portion of the fluid collection more superiorly measuring 4.4 x 5.7 cm on series 4, image 100 and a more inferior pocket of fluid about the proximal bypass graft measures 2.3 x 2.3 cm on series 4, im age 89. Bilateral lower extremities: Right lower extremity: There is a bypass graft from the right proximal superficial femoral artery to the popliteal artery wh ich is patent. The right deep femoral arteries are patent. Patent trifurcation arteries with slight d ecrease in blood flow more distally in the trifurcation arteries. There is calcified plaque in the t rifurcation arteries. There are skin angela in the medial and lateral right lower extremity at and below the level of the right knee. There is moderate subcutaneous edema in the right lower extremity. There is a right knee arthroplasty with the hardware components are intact. Moderate 1st MTP joint osteoarthritis. No acute fracture. Left lower extremity Left common femoral artery is patent containing mild mixed atherosclerotic plaque. There is occlusion of the left superficial femoral artery at the origin and is occluded throughout its course. There is minimal reconstitution of blood flow in the popliteal artery . There is diminutive blood flow throug hout the anterior tibial artery. There is flow in the posterior tibial and peroneal arteries with run off to the ankle and foot. There is subcutaneous edema in the left lower extremity. There is mild 1st MTP joint osteoarthritis. There is a left knee arthroplasty and patellar resurfacing. No acute osseous abnormality. IMPRESSION: 1. Postoperative changes of bypass graft from the proximal right superficial femoral artery to the p opliteal artery which is patent. 2. Loculated fluid collections containing gas in the right inguinal region and adjacent to the proxim al bypass graft which could reflect abscess formation. 3. The right trifurcation arteries appear patent although more distally blood flow appears more dimin utive which could be due to timing of bolus contrast. 4. Occlusion of the left superficial femoral artery at the origin and is occluded throughout its cour se. Minimal reconstitution of blood flow in the left popliteal artery 5. Diminutive blood flow throughout the left anterior tibial artery which could be due to multifocal stenoses or occlusions. 6. Blood Flow is seen in the left posterior tibial and peroneal arteries with runoff to the ankle and foot. 7. Patent aortoiliac vessels with [id number] atherosclerotic plaque. 8. 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 9. Moderate stenosis of the proximal left renal artery by atherosclerotic plaque. 10. Mild cardiomegaly, small pericardial effusion, small to moderate left pleural effusion and trace right pleural effusion, body wall edema, and subcutaneous edema in the bilateral lower extremities wh ich could be due to CHF/volume overload. 11. Hepatic steatosis. 12. Multifocal left renal cortical scarring and decreased enhancement as well as asymmetric atrophy o f the left kidney.
[2024-10-15] MEDS: docusate sod 100mg capsule PO SCH (21:35)
[2024-10-15] MEDS: carvedilol 6.25mg tablet PO SCH (21:35)
[2024-10-15 23:40] VITALS: BP 145/79; PULSE 78; RESP 15; TEMP 98.4; O2SAT 95
--- NOTE | 2024-10-15 23:44 | RADIOLOGY REPORT ---
CHEST RADIOGRAPH Indication: COUGH Technique: Single frontal view of the chest was obtained COMPARISON: DI CHEST,SINGLE VIEW on DOS: 09/13/24, DI CHEST,SINGLE VIEW on DOS: 09/13/24, DI CHEST,SINGLE VIEW on DOS: 07/28/24, DI CHEST,SINGLE VIEW on DOS: 07/26/24, DI CHEST,SINGLE VIEW on DOS: 07/25/24 FINDINGS: Lines and Tubes: None. Left anterior chest wall cardiac pacing device. Lungs: Small left pleural effusion. No evidence of focal consolidation. No pneumothorax. Cardiomediastinal contours: Cardiomegaly. Bones: Unremarkable IMPRESSION: 1. Cardiomegaly and small left pleural effusion.
[2024-10-16] VITALS (27 sets, daily range): BP systolic 104–149; BP diastolic 52–109; PULSE 68–142; RESP 11–21; TEMP 97–98.8; O2SAT 95–100
[2024-10-16] MEDS: piperacillin/tazo 3.375gm/50ml 50 ML IV SCH
[2024-10-16] MEDS: ketorolac trometh 30MG/ML vial 30 MG/ML VIAL IV ONE (02:50)
[2024-10-16] MEDS: piperacillin/tazo 3.375gm/50ml 50 ML IV ONE (02:57)
[2024-10-16] MEDS: metoprolol tartrate 1mg/ml inj IV ONE ×3 (03:05→05:10)
[2024-10-16] MEDS: carVEDilol 12.5mg tablet PO STA (03:45)
[2024-10-16 05:01] LABS: BASOPHILS % (AUTO) 0.5 % (0-1); EOSINOPHILS # (AUTO) 0.1 X10'3 (0-0.9); EOSINOPHILS % (AUTO) 1.6 % (0-6); HEMATOCRIT 29.3 % (35.0-45.0); HEMOGLOBIN 8.8 g/dl (12.0-16.0); LYMPHOCYTES # (AUTO) 0.7 X10'3 (1.1-4.8); LYMPHOCYTES % (AUTO) 7.6 % (21-51); MEAN CORPUSCULAR HEMOGLOBIN 21.8 PG (27.0-31.0); MEAN CORPUSCULAR HGB CONC 30.2 g/dL (33.0-36.5); MEAN CORPUSCULAR VOLUME 72.3 FL (78-98); MONOCYTES # (AUTO) 0.7 X10'3 (0-0.9); NEUTROPHILS # (AUTO) 7.4 X10'3 (1.8-7.7); NEUTROPHILS % (AUTO) 82.3 % (42-75); PLATELET COUNT 241 X10'3 (140-440); RED BLOOD COUNT 4.05 X10'6 (4.20-5.60); RED CELL DISTRIBUTION WIDTH 24.6 % (11.5-14.5); WHITE BLOOD COUNT 8.9 X10'3 (4.5-11.0)
[2024-10-16 05:16] LABS: % IRON SATURATION 4 % (11-46); IRON 13 UG/DL (49-151); TOTAL IRON BINDING CAPACITY 302 UG/DL (259-388)
[2024-10-16 05:23] LABS: HEMOGLOBIN A1C 6.3 % (4.5-6.2)
[2024-10-16 05:28] LABS: ALANINE AMINOTRANSFERASE 9 U/L (12-78); ALBUMIN 1.9 G/DL (3.4-5.0); ALBUMIN/GLOBULIN RATIO 0.5 (1.1-1.5); ALKALINE PHOSPHATASE 109 IU/L (46-116); ANION GAP 11 (8-16); ASPARTATE AMINO TRANSFERASE 16 U/L (10-37); BILIRUBIN,TOTAL 1.4 MG/DL (0.1-1.0); BLOOD UREA NITROGEN 25 MG/DL (7-18); BUN/CREATININE RATIO 22.7 (10.0-20.0); CALCIUM 7.7 MG/DL (8.5-10.1); CHLORIDE 105 MMOL/L (99-107); GLUCOSE 81 MG/DL (70-104); MAGNESIUM 1.7 MG/DL (1.5-2.4); POTASSIUM 4.2 MMOL/L (3.5-5.1); SODIUM 141 MMOL/L (135-145); TOTAL CARBON DIOXIDE 24.6 MMOL/L (24-32); TOTAL PROTEIN 5.8 G/DL (6.4-8.2); eCRCL 32 ML/MIN; eGFR 47 ML/MIN
--- NOTE | 2024-10-16 07:55 | ELECTROCARDIOGRAPH REPORT ---
[facility] Test Date: 2024-10-15 Test Time: 18:39:36 Pat Name: PATRIC HANSEN Department: EMERGENCY ROOM Room: [place] [address] Gender: F [employer]: : 1940 Requested By: KATERINA GARCIA Order Number: [id number] Reading MD: Dr. Paramjit Webster Measurements Intervals [place] Rate: 107 P: 0 MS: 0 QRS: 66 QRSD: 145 T: 2 QT: 399 QTc: 533 Interpretive Statements Atrial fibrillation Right bundle branch block Baseline wander in lead(s) V4 Electronically Signed On 10-28-2024 17:54:[address] Paramjit Webster Please click the below link to view image of tracing.
[2024-10-16] MEDS: EMPAGLIFLOZIN 25 MG TABLET PO SCH (08:04)
[2024-10-16] MEDS: levoTHYROXINE 25mcg tablet PO SCH (08:04)
[2024-10-16] MEDS: furosemide 20MG tablet PO SCH (08:04)
[2024-10-16] MEDS: atorvastatin 20mg tablet PO SCH (08:04)
[2024-10-16] MEDS: lisinopril 5mg tablet PO SCH (08:05)
[2024-10-16] MEDS ORDERED: DEXTROSE 15 GM of carb/4 tabs (each vial/BOTTLE has 4 tablets) PO PRN ×2 (09:45)
[2024-10-16] MEDS ORDERED: glucagon, human recombinant 1mg kit SUBCUT PRN (09:45)
[2024-10-16] MEDS ORDERED: dextrose 50%-water 50ml dispensing syringe IV PRN (09:45)
[2024-10-16] MEDS: dextrose 50%-water 50ml dispensing syringe IV PRN (10:10)
[2024-10-16] MEDS: furosemide 40mg/4ml inj IV ONE (11:04)
[2024-10-16] MEDS: metoprolol tartrate 25mg tablet PO STA (11:04)
--- NOTE | 2024-10-16 11:33 | PROGRESS NOTE ---
Progress Note ID Providers to CC ~ Progress Note Progress Note: pt seen and examined-needs exploration right groin with sartorius flap/leg wound debridement-discussed procedure including risks/benefits/alternatives HENRRY RILEY MD Oct 16, 2024 11:33
[2024-10-16 12:09] LABS: PRO BRAIN NATRIURETIC PEPTIDE 5532 PG/ML (0-450)
[2024-10-16] MEDS ORDERED: sevoflurane 250ml liquid IH ONE (12:45)
[2024-10-16] MEDS ORDERED: fentaNYL/PF 50MCG/1 ML 2ML syringe ONE (13:01)
[2024-10-16] MEDS ORDERED: propofol inj 20 ML IV ONE (13:13)
[2024-10-16] MEDS ORDERED: midazolam 1 mg/ML 2ml injection ONE (13:13)
[2024-10-16] MEDS ORDERED: rocuronium 10mg/ml inj IV ONE ×2 (13:13)
[2024-10-16] MEDS ORDERED: LIDOcaine 2% (20mg/ml) 5ml vial ONE (13:13)
[2024-10-16] MEDS ORDERED: ondansetron/PF 4mg/2ml inj IV PRN (13:20)
[2024-10-16] MEDS ORDERED: acetaminophen 1,000mg/100ml IV 100 ML IV PRN (13:20)
[2024-10-16] MEDS ORDERED: meperidine/PF 25mg/ml syringe IV PRN (13:20)
[2024-10-16] MEDS: ringers solution, lacted 1,000 ML IV SCH (13:20)
[2024-10-16] MEDS ORDERED: proCHLORperazine 10 MG/2 ml inj IV PRN (13:20)
[2024-10-16] MEDS ORDERED: morphine 4 MG/ML inj SYRINge IV PRN (13:20)
[2024-10-16] MEDS ORDERED: hydrALAZINE 20mg/ml inj. IV PRN (13:20)
[2024-10-16] MEDS ORDERED: labetalol 20mg/4ml (5mg/ml) syringe IV PRN (13:20)
[2024-10-16] MEDS ORDERED: morphine 2 MG/ML inj. syringe IV PRN (13:20)
[2024-10-16] MEDS ORDERED: HYDROmorphone/PF 0.2 MG/ML SYRINGE IV PRN ×2 (13:20)
[2024-10-16] MEDS ORDERED: ePHEDrine 50MG/ML INJ. ONE ×2 (13:23→13:45)
[2024-10-16] MEDS ORDERED: phenylephrine 10mg/ml inj. ONE (13:45)
[2024-10-16] MEDS ORDERED: 0.9 % SODIUM CHLORIDE 10 ML VIAL ONE (13:45)
[2024-10-16] MEDS ORDERED: dexamethasone sod phosphate 4mg/ml inj. ONE (13:45)
[2024-10-16] MEDS ORDERED: ondansetron/PF 4mg/2ml inj ONE (13:45)
[2024-10-16] MEDS ORDERED: neostigmine methylsulfate 1 MG/ML 10ml vial ONE (14:23)
--- NOTE | 2024-10-16 14:25 | OPERATIVE REPORT ---
Operative Report Providers to CC ~ Date of Procedure: Oct 16, 2024 Pre-Operative Diagnosis: ? right groin infection s/p bypass Post-Operative Diagnosis SAME as PRE-Op Procedure Performed exploration right groin/groin debridement/sartorius muscle flap/wound vac/calf wound debridement Surgeon: sonja vidales Anesthesiologist: Alejandro Rosales Type of Anesthesia: General Findings: right groin fluid collection Estimated Blood Loss: min Specimen Removed: multiple cultures HENRRY RILEY MD Oct 16, 2024 14:25
[2024-10-16] MEDS ORDERED: naloxone 0.4 mg/ml inj IV PRN (14:30)
[2024-10-16] MEDS ORDERED: PCA WASTE DOCUMENTATION 1 MG ML MC SCH (14:30)
--- NOTE | 2024-10-16 18:02 | PROGRESS NOTE- Residence ---
Progress Note - Resident Providers to CC Resident Creating Document: AMY SANCHES, RES ~ Antibiotic Timeout Antibiotic Ordered?: Yes Subjective The patient was seen and examined at bedside today. She has been evaluated by Dr. Handley and going for surgery this afternoon. She also had AFib with high heart rate in 110s to 120s. Talked to Dr. Alcantar, said she can still go to the ER. Objective Vital Signs Date Time Temp Pulse Resp B/P (MAP) Pulse Ox O2 Delivery O2 Flow Rate FiO2 10/16/24 15:35 78 16 124/69 (87) 98 Room Air 0.0 10/16/24 14:35 97.0 10/16/24 08:13 21 Result Diagram: 10/16/2443410/16/24434 Elderly female, awake and alert, no acute distress. HEENT: Conjunctiva pink, Sclera clear, Mucus Membranes moist. Neck: Supple without masses and tenderness. Resp: Bilateral equal air entry present, normal vesicular breath sounds heard Heart: Irregular rate and rhythm, normal S1 and S2 without murmur Abdomen: Soft and non tender no organomegaly Extremities: Left side lower extremity: 2+ edema, weak pulse Right side: Right medial thigh suture dehiscence with erythema and mild tenderness, no discharge. leg : dehiscence of surgical wounds with serosanguineous discharge and surrounding erythema, swelling, and tenderness Inguinal area: Surgical side mild erythema and mild tenderness Skin: Warm and Dry. Neurological: Speech is clear, alert, and oriented x 4, no gross neurological deficits Coagulation Studies Laboratory Tests Test 10/15/24 13:38 Prothrombin Time 15.1 SECONDS (9.0-12.0) H INR International Normalized Ratio 1.5 INR Coagulation Comments Plan Plan Wound dehiscence of Fem-pop bypass Infected surgical site History of femoral popliteal bypass (09/13/2024) Patient underwent right groin exploration with groin debridement and calf wound debridement. Wound VAC placed. By Dr. Handley. Follow up with wound cultures and blood cultures. Pain management by Dr. Handley. Started the patient on clear liquid diet. Hold Plavix for now. Continue Zosyn and vancomycin IV. Atrial fibrillation with rapid ventricular rate Rate controlled now, continue carvedilol 6.25 b.i.d. Avoid calcium channel blockers. Continue telemetry monitoring. Hold Eliquis for now. Heart failure with reduced ejection fraction not in exacerbation 07/30: EF 35-40%, RVSP 65 mmHg. Continue carvedilol, Lasix, Jardiance, lisinopril. Iron-deficiency anemia We will start the patient on IV iron tomorrow. Hypothyroidism TSH 20.93, normal free T4, pending T3. Continue home levothyroxine 25 mcg. CAD s/p LCA stenting (06/2024) Aortic stenosis s/p TAVR Sick sinus syndrome s/p ppm Held Plavix for now. Continue outpatient cardiology follow up. Code Status: Full code DVT prophylaxis: SCDs Analgesia/sedation: Tylenol Line/tube: Peripheral Nutrition: Clear liquids Prognosis: Guarded Disposition: Management as per Dr. Handley. Amy Sanches MD Internal Medicine Resident, PGY-1 Date of Service: Oct 16, 2024 Billing Provider: KAMARI ZAPATA MD Common Visit Codes: [id number] INP/OBS CARE(HIGH) AMY SANCHES, RES Oct 16, 2024 18:02 KAMARI ZAPATA MD Oct 29, 2024 17:03
[2024-10-16] MEDS: nystatin 15 GM powder TP SCH (19:27)
[2024-10-16] MEDS: HYDROmorphone inj. 0.5 MG/0.5 ML DISP.SYRIN IV PRN (21:14)
[2024-10-17] VITALS (11 sets, daily range): BP systolic 93–120; BP diastolic 48–76; PULSE 61–127; RESP 11–20; TEMP 97.1–98.7; O2SAT 94–99
--- NOTE | 2024-10-17 02:12 | OPERATIVE REPORT ---
DATE OF SURGERY: 10/16/2024 DICTATING PHYSICIAN: Case Handley MD PREOPERATIVE DIAGNOSES: * Question right groin infection. * Calf wound dehiscence. POSTOPERATIVE DIAGNOSES: * Question right groin infection. * Calf wound dehiscence. PROCEDURES: * Exploration of right groin. * Groin wound debridement. * Sartorius muscle flap. * Wound VAC placement. * Debridement of multiple calf incisions. SURGEON: Case Handley MD CREDIT CLERK: None. ANESTHESIA: General/Dr. Rosales. DRAINS: None. INDICATIONS FOR OPERATION: An 84-year-old female with a history of previous peripheral vascular disease who underwent a right fem-tibial bypass for critical limb ischemia. The patient was seen in the office and developed areas of calf wound dehiscence as well as a right wound fluid collection infection. She was taken to Surgery for a right groin exploration and calf wound debridement. INTRAOPERATIVE FINDINGS: The patient had superficial dehiscence of the calf wounds with no purulent drainage. The patient had a fluid collection in the right groin. It was a little bit purulent. No bleeding present at the anastomosis. Sartorius muscle flap was rotated medially to cover the graft. DESCRIPTION OF PROCEDURE: The patient was placed supine on the operating table. After induction of general anesthesia and placement of endotracheal tube, the right lower extremity was prepped and draped. After a timeout was performed, the calf wounds were debrided all devitalized tissue. Hemostasis was obtained. Attention was turned to the right groin where the previous incision was reopened. There was a large fluid collection present in the groin. The graft was exposed. There was no bleeding from the graft. Cultures were obtained of the groin wound. No necrotic tissue visualized; however, given the concerns of fluid sartorius muscle flap, the incision was extended laterally. Sartorius lateral border was then identified. Sartorius was mobilized off the anterior superior iliac spine. Sartorius was then mobilized medially to cover the graft. The wound was then irrigated with antibiotic-containing solution. The graft was then secured to the tissues using sutures of #1 Vicryl to cover the graft sutures of #1 Vicryl. Then, the wounds were closed in layers. Tissue was closed with angela to leave approximately an 8 cm opening. Wound VAC was then brought to the field and secured in place. Remaining wounds were then packed with Kerlix, soaked in antibiotics. Dressings were applied. The patient was transferred to recovery in stable condition. Case Handley MD TID: [id number] RECEIPT: [id number] SHEREE/EDOUARD/RORY
[2024-10-17 06:20] LABS: BASOPHILS % (AUTO) 0.1 % (0-1); EOSINOPHILS % (AUTO) 0 % (0-6); HEMATOCRIT 27.6 % (35.0-45.0); HEMOGLOBIN 8.2 g/dl (12.0-16.0); LYMPHOCYTES # (AUTO) 0.5 X10'3 (1.1-4.8); LYMPHOCYTES % (AUTO) 5.9 % (21-51); MEAN CORPUSCULAR HEMOGLOBIN 21.8 PG (27.0-31.0); MEAN CORPUSCULAR HGB CONC 29.9 g/dL (33.0-36.5); MEAN CORPUSCULAR VOLUME 72.9 FL (78-98); MONOCYTES # (AUTO) 0.4 X10'3 (0-0.9); MONOCYTES % (AUTO) 5.1 % (2-12); NEUTROPHILS # (AUTO) 7.5 X10'3 (1.8-7.7); NEUTROPHILS % (AUTO) 88.9 % (42-75); PLATELET COUNT 210 X10'3 (140-440); RED BLOOD COUNT 3.79 X10'6 (4.20-5.60); WHITE BLOOD COUNT 8.5 X10'3 (4.5-11.0)
[2024-10-17 06:23] LABS: ALANINE AMINOTRANSFERASE 12 U/L (12-78); ALBUMIN 1.9 G/DL (3.4-5.0); ALBUMIN/GLOBULIN RATIO 0.5 (1.1-1.5); ALKALINE PHOSPHATASE 94 IU/L (46-116); ANION GAP 10 (8-16); ASPARTATE AMINO TRANSFERASE 22 U/L (10-37); BILIRUBIN,TOTAL 1.1 MG/DL (0.1-1.0); BLOOD UREA NITROGEN 27 MG/DL (7-18); CALCIUM 7.7 MG/DL (8.5-10.1); CHLORIDE 104 MMOL/L (99-107); CREATININE 1.23 MG/DL (0.40-0.90); GLUCOSE 159 MG/DL (70-104); MAGNESIUM 1.8 MG/DL (1.5-2.4); POTASSIUM 4.2 MMOL/L (3.5-5.1); SODIUM 139 MMOL/L (135-145); TOTAL CARBON DIOXIDE 25.4 MMOL/L (24-32); TOTAL PROTEIN 5.4 G/DL (6.4-8.2); eCRCL 28 ML/MIN; eGFR 41 ML/MIN
--- NOTE | 2024-10-17 06:25 | CONSULTATION ---
DATE OF CONSULTATION: 10/16/2024 DICTATING PHYSICIAN: Case Handley MD REASON FOR CONSULTATION: Evaluation of right leg wound. HISTORY OF PRESENT ILLNESS: The patient is an 84-year-old female with history of PAD, status post right fem bypass in September of this year for limb ischemia. The patient was seen in the office and found to have evidence of dehiscence of the wounds. The patient was subsequently admitted and taken to surgery for groin exploration and calf wound debridement. A CAT scan revealed fluid and air in the right groin wound. PAST MEDICAL HISTORY: Notable for aortic stenosis, atrial fibrillation, CHF, chronic kidney disease, coronary artery disease. PAST SURGICAL HISTORY: Include * Previous TAVR, right femur and tibial bypass using composite graft. * Hysterectomy. * Partial thyroidectomy. * Cholecystectomy. * Knee arthroplasty. * Permanent pacemaker placement. HOME MEDICATIONS: Include levothyroxine, Atarax, Zestril, Plavix, Coreg, potassium, Lasix, fluticasone, Jardiance and Lipitor. ALLERGIES: OXYCODONE. SOCIAL HISTORY: No alcohol use. REVIEW OF SYSTEMS: Please see H and P. PHYSICAL EXAMINATION: GENERAL: Well-nourished elderly female, in no distress. VITAL SIGNS: Unremarkable. HEART: Regular rhythm. LUNGS: Clear to auscultation. ABDOMEN: Benign. EXTREMITIES: Right lower extremity has a Doppler tibial pulse. There is some dehiscence of the medial and lateral calf wounds. Groin wound has some areas of dehiscence as well. LABORATORY DATA: Included WBC 8.5, hematocrit of 33, platelet count is 280. Chemistries include BUN and creatinine of 33 and 1.08. Procalcitonin less than 0.5. IMAGING STUDIES: CT of the abdomen and pelvis shows a patent graft with a fluid collection in the right groin containing air. Abscess cannot be excluded. IMPRESSION: * Question right groin infection, status post fem and tibial bypass. * Multiple areas of wound dehiscence, right lower extremity. * Atrial fibrillation. * CHF. * Chronic kidney disease. * History of coronary artery disease, status post stent placement. * Status post TAVR. RECOMMENDATIONS: * Admit. * IV antibiotics. * Exploration of right groin with wound debridement. Case Handley MD TID: [id number] RECEIPT: [id number] SHEREE/JOLIE/DMITRY
[2024-10-17] MEDS: metoprolol tartrate 1mg/ml inj IV ONE ×2 (08:09→13:18)
[2024-10-17] MEDS ORDERED: morphine 2 MG/ML inj. syringe IV PRN (11:25)
[2024-10-17] MEDS: metoprolol succinate 25mg (24-HOUR) SR. Tablet PO ONE (11:58)
[2024-10-17] MEDS: furosemide 40mg/4ml inj IV ONE (11:59)
[2024-10-17] MEDS: morphine 4 MG/ML inj SYRINge IV PRN (11:59)
[2024-10-17] MEDS ORDERED: oxyCODONE/APAP 5-325mg tablet PO PRN ×2 (14:50→15:00)
[2024-10-17] MEDS ORDERED: clopidogrel 300mg tablet PO ONE (16:10)
[2024-10-17] MEDS: clopidogrel 75mg tablet PO ONE (16:25)
[2024-10-17] MEDS: PERFLUTREN PROTEIN-A MICROSPHR (Optison) 0.22 MG/ML 3ML VIAL IV ONE (16:50)
--- NOTE | 2024-10-17 16:51 | PROGRESS NOTE ---
Progress Note ID Providers to CC ~ Progress Note Progress Note: doing well/cont would care HENRRY RILEY MD Oct 17, 2024 16:51
[2024-10-17] MEDS: metoprolol tartrate 25mg tablet PO SCH (20:00)
[2024-10-17] MEDS ORDERED: amiodarone 50MG/ML inj IV ONE (20:05)
[2024-10-17] MEDS ORDERED: amiodarone inj. 450 MG in dextrose 5%-water 241 ML IV SCH (20:05)
--- NOTE | 2024-10-17 20:35 | PROGRESS NOTE- Residence ---
Progress Note - Resident Providers to CC Resident Creating Document: AMY SANCHES, RES ~ Antibiotic Timeout Antibiotic Ordered?: Yes Subjective The patient was seen and examined at bedside today. Patient has a wound VAC after debridement. Complaining of pain. Objective Vital Signs Date Time Temp Pulse Resp B/P (MAP) Pulse Ox O2 Delivery O2 Flow Rate FiO2 10/17/24 20:24 120 16 98 Room Air* 0 21 10/17/24 15:00 97.6 98/76 (83) Result Diagram: 10/17/24 0541 10/17/24 0541 Elderly female, awake and alert, no acute distress. HEENT: Conjunctiva pink, Sclera clear, Mucus Membranes moist. Neck: Supple without masses and tenderness. Resp: Bilateral equal air entry present, mild crackles heard bilaterally Heart: Irregular rate and rhythm, normal S1 and S2 without murmur Abdomen: Soft and non tender no organomegaly Extremities: Left side lower extremity: 2+ edema, weak pulse Right side: Groin dressed in surgical dressing, leg has wound VAC, foot dressed in surgical bandage Inguinal area: Surgical side mild erythema and mild tenderness Skin: Warm and Dry. Neurological: Speech is clear, alert, and oriented x 4, no gross neurological deficits Coagulation Studies Laboratory Tests Test 10/15/24 13:38 Prothrombin Time 15.1 SECONDS (9.0-12.0) H INR International Normalized Ratio 1.5 INR Coagulation Comments Plan Plan Wound dehiscence of Fem-pop bypass Infected surgical site Status post wound debridement on 10/16/2024 History of femoral popliteal bypass (09/13/2024) Patient underwent right groin exploration with groin debridement and calf wound debridement. Wound VAC placed. By Dr. Handley. Follow up with wound cultures and blood cultures. Pain management by Dr. Handley. Started the patient on heart healthy diet. Continue Zosyn and vancomycin IV. Infectious diseases, Dr. Burt consulted. Follow up with the recommendations. Atrial fibrillation with rapid ventricular rate Carvedilol discontinued and started the patient on metoprolol tartrate 25 mg b.i.d. Avoid calcium channel blockers. Continue telemetry monitoring. Eliquis 5 mg b.i.d. started. Heart failure with reduced ejection fraction not in exacerbation 07/30: EF 35-40%, RVSP 65 mmHg. Continue carvedilol, Lasix, Jardiance, lisinopril. Spironolactone ordered for tomorrow. Iron-deficiency anemia We will start the patient on IV iron tomorrow. Hypothyroidism TSH 20.93, normal free T4, pending T3. Continue home levothyroxine 25 mcg. CAD s/p LCA stenting (06/2024) Aortic stenosis s/p TAVR Sick sinus syndrome s/p ppm Started the patient on Plavix. Continue outpatient cardiology follow up. Code Status: Full code DVT prophylaxis: SCDs Analgesia/sedation: Tylenol Line/tube: Peripheral Nutrition: Heart healthy diet Prognosis: Guarded Disposition: Management as per Dr. Handley. Amy Sanches MD Internal Medicine Resident, PGY-1 Date of Service: Oct 17, 2024 Billing Provider: KAMARI ZAPATA MD Common Visit Codes: [id number] INP/OBS CARE(HIGH) AMY SANCHES, RES Oct 17, 2024 20:35 KAMARI ZAPATA MD Oct 29, 2024 17:05
[2024-10-17] MEDS: apixaban 5mg tablet PO SCH (21:35)
[2024-10-17] MEDS: amiodarone 150mg/dext, iso-os 100 ML IV ONE (21:37)
[2024-10-17] MEDS: normal saline 500ml IV soln 500 ML IV ONE (22:09)
[2024-10-17] MEDS: amiodarone/D5 360MG/200ML BAG 200 ML IV SCH (23:21)
[2024-10-18] VITALS (13 sets, daily range): BP systolic 86–140; BP diastolic 54–84; PULSE 86–115; RESP 12–21; TEMP 97.5–97.8; O2SAT 90–100
[2024-10-18] MEDS: normal saline 500ml IV soln 500 ML IV SCH (01:05)
[2024-10-18] MEDS: oxyCODONE/APAP 5-325mg tablet PO PRN (01:35)
[2024-10-18 07:38] LABS: BASOPHILS # (AUTO) 0.1 X10'3 (0-0.2); HEMOGLOBIN 7.6 g/dl (12.0-16.0); RED BLOOD COUNT 3.59 X10'6 (4.20-5.60)
[2024-10-18 07:42] LABS: BASOPHILS % (AUTO) 0.5 % (0-1); EOSINOPHILS % (AUTO) 0.2 % (0-6); LYMPHOCYTES # (AUTO) 1.6 X10'3 (1.1-4.8); LYMPHOCYTES % (AUTO) 13.1 % (21-51); MEAN CORPUSCULAR VOLUME 72.4 FL (78-98); MEAN PLATELET VOLUME 8.9 FL (7.4-10.4); MONOCYTES # (AUTO) 1.3 X10'3 (0-0.9); MONOCYTES % (AUTO) 10.6 % (2-12); NEUTROPHILS # (AUTO) 9.1 X10'3 (1.8-7.7); NEUTROPHILS % (AUTO) 75.6 % (42-75); PLATELET COUNT 221 X10'3 (140-440); RED CELL DISTRIBUTION WIDTH 25.2 % (11.5-14.5)
[2024-10-18] MEDS ORDERED: lisinopril 5mg tablet PO SCH (08:00)
[2024-10-18] MEDS: furosemide 20 MG/2 ML vial IV SCH (08:00)
[2024-10-18] MEDS: clopidogrel 75mg tablet PO SCH (08:02)
[2024-10-18] MEDS: normal saline 1000ml 1,000 ML IV SCH (08:03)
[2024-10-18 08:11] LABS: ALANINE AMINOTRANSFERASE 13 U/L (12-78); ALBUMIN 1.8 G/DL (3.4-5.0); ALBUMIN/GLOBULIN RATIO 0.5 (1.1-1.5); ALKALINE PHOSPHATASE 84 IU/L (46-116); ANION GAP 12 (8-16); ASPARTATE AMINO TRANSFERASE 20 U/L (10-37); BILIRUBIN,TOTAL 0.7 MG/DL (0.1-1.0); BLOOD UREA NITROGEN 34 MG/DL (7-18); BUN/CREATININE RATIO 19.9 (10.0-20.0); CALCIUM 7.3 MG/DL (8.5-10.1); CHLORIDE 101 MMOL/L (99-107); CREATININE 1.71 MG/DL (0.40-0.90); GLUCOSE 137 MG/DL (70-104); MAGNESIUM 1.8 MG/DL (1.5-2.4); SODIUM 136 MMOL/L (135-145); TOTAL CARBON DIOXIDE 23.1 MMOL/L (24-32); TOTAL PROTEIN 5.2 G/DL (6.4-8.2); eCRCL 20 ML/MIN; eGFR 28 ML/MIN
[2024-10-18] MEDS ORDERED: spironolactone 25 MG tablet PO SCH (08:30)
[2024-10-18 09:33] LABS: HYPOCHROMASIA 2+
[2024-10-18 09:34] LABS: ANISOCYTOSIS 4+; MICROCYTOSIS 1+; SPHEROCYTES 1+; TARGET CELLS FEW; TEAR DROP CELLS FEW
[2024-10-18 09:36] LABS: ACANTHOCYTES FEW; ELLIPTOCYTES 2+; PLATELET ESTIMATE NORMAL; SCHISTOCYTES FEW
[2024-10-18 09:38] LABS: LARGE PLATELETS FEW
--- NOTE | 2024-10-18 15:41 | PROGRESS NOTE ---
Progress Note ID Providers to CC ~ Progress Note Progress Note: DOING WELL/CONT WOUND CARE HENRRY RILEY MD Oct 18, 2024 15:41
--- NOTE | 2024-10-18 15:48 | PROGRESS NOTE- Residence ---
Progress Note - Resident Providers to CC Resident Creating Document: EVERETTE COLLINS RES ~ Antibiotic Timeout Antibiotic Ordered?: Yes Subjective The patient was seen and examined at bedside today. Patient went into AFib with the RVR last night with a heart rate in 150s. Started on amiodarone drip by the night team. Heart rate is less than 100 now. Switched from IV amiodarone to oral amiodarone. Continue oral amiodarone 200 mg p.o. b.i.d. for two weeks followed by 200 mg p.o. daily thereafter. Patient denies any complaints. She received 1 L bolus of fluid due to soft blood pressures. Objective Vital Signs Date Time Temp Pulse Resp B/P (MAP) Pulse Ox O2 Delivery O2 Flow Rate FiO2 10/18/24 08:00 15 99 Room Air 10/18/24 06:30 88 10/18/24 06:00 97.6 93/54 (67) 10/17/24 20:24 0 21 Result Diagram: 10/18/24 0715 10/18/24 0715 Elderly female, awake and alert, no acute distress. HEENT: Conjunctiva pink, Sclera clear, Mucus Membranes moist. Neck: Supple without masses and tenderness. Resp: Bilateral equal air entry present, mild crackles heard bilaterally Heart: Irregular rate and rhythm, normal S1 and S2 without murmur Abdomen: Soft and non tender no organomegaly Extremities: Left side lower extremity: 2+ edema, weak pulse Right side: Groin dressed in surgical dressing, leg has wound VAC, foot dressed in surgical bandage Inguinal area: Surgical side mild erythema and mild tenderness Skin: Warm and Dry. Neurological: Speech is clear, alert, and oriented x 4, no gross neurological deficits Coagulation Studies Laboratory Tests Test 10/15/24 13:38 Prothrombin Time 15.1 SECONDS (9.0-12.0) H INR International Normalized Ratio 1.5 INR Coagulation Comments Assessment Assessment 84 years old female with history of AFib, CHF with reduced ejection fraction, aortic stenosis status post TAVR, sick sinus syndrome status post ppm, coronary artery disease with recent PCI of the proximal LCX on 07/02, presented with nonhealing surgical site wound. Patient underwent right fem-pop bypass endarterectomy on September 13, 2024 in our hospital transferred to rehab when wound VAC placement. Patient was seen today by Dr. Handley and advised to admission. Patient was in rehab after discharge from our facility. He denied fever or chills shortness of breaths any changes in urinary habits or bowel movement she was ambulating with lens assistant. Plan Plan Wound dehiscence of Fem-pop bypass Infected surgical site Status post wound debridement on 10/16/2024 History of femoral popliteal bypass (09/13/2024) Patient underwent right groin exploration with groin debridement and calf wound debridement. Wound VAC placed. By Dr. Handley. Follow up with wound cultures and blood cultures. Pain management by Dr. Handley. Started the patient on heart healthy diet. Continue Zosyn and vancomycin IV. Infectious diseases, Dr. Burt consulted. Follow up with the recommendations. Atrial fibrillation with rapid ventricular rate Carvedilol discontinued and started the patient on metoprolol tartrate 25 mg b.i.d. Avoid calcium channel blockers. Continue telemetry monitoring. Eliquis 5 mg b.i.d. started. Heart failure with reduced ejection fraction not in exacerbation 07/30: EF 35-40%, RVSP 65 mmHg. Continue carvedilol, Lasix, Jardiance, lisinopril. Spironolactone ordered for tomorrow. Iron-deficiency anemia We will start the patient on IV iron tomorrow. Hypothyroidism TSH 20.93, normal free T4, pending T3. Continue home levothyroxine 25 mcg. CAD s/p LCA stenting (06/2024) Aortic stenosis s/p TAVR Sick sinus syndrome s/p ppm Started the patient on Plavix. Continue outpatient cardiology follow up. Code Status: Full code DVT prophylaxis: SCDs Analgesia/sedation: Tylenol Line/tube: Peripheral Nutrition: Heart healthy diet Prognosis: Guarded Disposition: Management as per Dr. Handley. Everette Wang MD Internal Medicine Resident, PGY-1 Date of Service: Oct 18, 2024 Billing Provider: KAMARI ZAPATA MD Common Visit Codes: [id number] INP/OBS CARE(HIGH) EVERETTE COLLINS, RES Oct 18, 2024 15:48 KAMARI ZAPATA MD Oct 29, 2024 17:05
--- NOTE | 2024-10-18 17:52 | CARDIOLOGY REPORT ---
APPROVED REPORT EXAM: Comprehensive 2D, Doppler, and color-flow Echocardiogram. Patient Location: [facility] Blood Pressure: 98/76 mmHg Heart Rate: 83 bpm Indications Congestive Heart Failure Dizziness Coronary Artery Disease Atrial Fibrillation Stent x 1 (08/30) 23 mm Franklin Keysha 3 Ultra RESILIA Bioprosthetic TAVR 07/28/24 [facility] 2005 STAGECRAFT PROFESSOR: Enriqueta Garcia MD Previous ECHO: 07/29/24, [facility], EF: 35-40; modRVE; sevBAE; modMR; sevTR; tr circ. magalie eff 2D Dimensions LA Diam4.2 cm IVSd 0.9 (0.7-1.1cm) LVDd 4.6 cm PWd 0.9 (0.7-1.1cm) IVSs 1.1 (0.8-1.2cm) LVDs 3.6 (2.5-4.0cm) PWs 1.3 (0.8-1.2cm) LVEF(%) 42.4 (>50%) Ao Asc Diam.2.78 cmIVC 22.58 mm FS (%) 20.7 % SV 40.3 ml CO 3.7 L/min M-Mode Dimensions Left Atrium(MM) 4.28 (2.5-4.0cm) Aortic Root 2.31 (2.2-3.7cm) MV EPSS 1.2 (<0.5cm) Aortic Valve AoV Peak Marvin. 209.5 cm/s AoV VTI 35.6 cm AO Peak GR. 17.6 mmHg AO Mean GR. 11 mmHg LVOT VTI 19.48 cm LVOT Peak Marvin. 125.6 cm/s TDI Lateral E' P. V10.03 cm/s Pulmonary Valve PAEDP13.61 mmHg Tricuspid Valve TR P. Velocity 287 cm/s RAP ESTIMATE 10 mmHg TR Peak Gr. 33 mmHg RVSP 43 mmHg LEFT VENTRICLE Normal LV size and wall thickness. Overall systolic function is moderately decreased. LVEF is 45%. RIGHT VENTRICLE Right ventricle is moderately dilated with decreased function. ATRIA Left atrium is mildly dilated. Right atrium is mildly dilated. Pacemaker lead is present in the right heart. AORTIC VALVE 23 mm Franklin Keysha 3 Ultra Resilia bioprosthetic TAVR appears well seated with normal function. Pea k / mean gradients of 18 / 11 mmHG. Peak velocity is measured at 2.09 m/sec. MITRAL VALVE Mild mitral annular calcification without stenosis. Moderate regurgitation. TRICUSPID VALVE The tricuspid valve is normal in structure with moderate to severe regurgitation. PULMONIC VALVE The pulmonary valve is normal in structure with mild insufficiency. GREAT VESSELS The aortic root is normal in size. IVC is dilated and collapses greater than 50% with inspiration. PERICARDIUM Trace loculated pericardial effusion present without hemodynamic compromise. Best seen in PSAX view. Pleural effusion present. Other Information Study Quality: Adequate Conclusion Normal LV size and wall thickness. Overall systolic function is moderately decreased. LVEF is 45%. Right ventricle is moderately dilated with decreased function. Left atrium is mildly dilated. Right atrium is mildly dilated. Pacemaker lead is present in the right heart. 23 mm Franklin Keysha 3 Ultra Resilia bioprosthetic TAVR appears well seated with normal function. Pe ak / mean gradients of 18 / 11 mmHG. Peak velocity is measured at 2.09 m/sec. Mild mitral annular calcification without stenosis. Moderate regurgitation. The tricuspid valve is normal in structure with moderate to severe regurgitation. Trace loculated pericardial effusion present without hemodynamic compromise. Best seen in PSAX view. Pleural effusion present.
[2024-10-18] MEDS: VANCOMYCIN LEVEL IV ONE (18:30)
[2024-10-18] MEDS: amiodarone 200mg tablet PO SCH (22:30)
[2024-10-19] VITALS (19 sets, daily range): BP systolic 83–144; BP diastolic 48–100; PULSE 88–132; RESP 12–20; TEMP 97.5–98; O2SAT 96–100
--- NOTE | 2024-10-19 06:37 | VASCULAR REPORT ---
Right lower extremity venous duplex Clinical History: Pain Comparison: VASC VL VENOUS on DOS: 09/13/24, US VENOUS DOPPLER LOWER EXT BILAT on DOS: 09/06/24 Technique: Duplex Doppler evaluation of the deep venous system of the right lower extremity from the common femo ral vein to the popliteal vein including color Doppler and spectral/pulsed waveform analysis was perf ormed. Findings: The common femoral vein demonstrates appropriate compressibility and waveform variability. There is compressibility/patency of the great saphenous vein at the proximal thigh. The femoral vein demonstrates appropriate compressibility and waveform variability. The deep femoral vein demonstrates appropriate compressibility and waveform variability. The popliteal vein demonstrates appropriate compressibility and waveform variability. There is normal compressibility at the tibioperoneal trunk. Impression: No right femoropopliteal venous thrombosis. Contralateral common femoral vein is patent.
--- NOTE | 2024-10-19 06:40 | VASCULAR REPORT ---
Right Lower Extremity Arterial Duplex Clinical History: Pain, postop Comparison: None Technique: Duplex Doppler evaluation including color Doppler and spectral/pulsed waveform analysis of the lower extremity arteries was performed. Findings/IMPRESSION: RIGHT: Extremely limited examination secondary to recent surgery and edema in the right leg. The right commo n femoral artery, deep femoral artery, [place] superficial femoral artery is not visualized. No flow is visualized in the right posterior tibial artery or dorsalis pedis artery. Unable to visualize the bypass graft.
--- NOTE | 2024-10-19 07:15 | CONSULTATION ---
DATE OF CONSULTATION: 10/18/2024 DICTATING PHYSICIAN: Yoel Burt MD REASON FOR CONSULTATION: I am seeing the patient at the request of Dr. Musa for evaluation of a postoperative infection following right lower extremity bypass surgery. HISTORY OF PRESENT ILLNESS: The patient is an 84-year-old female who underwent bypass surgery with Dr. Handley back on 09/14 due to an ischemic right lower extremity. More specifically, she underwent right femoral to anterior tibial bypass using a Composite graft. Interestingly, she had undergone transcatheter aortic valve implantation back in July. She was discharged from this facility on 09/19 after her vascular surgery with Dr. Handley. Unfortunately, she returned to the hospital a little less than 4 weeks later on 10/15 with suspected infection at the right groin area. I believe she had been in rehab. She went back to the operating room yet again with Dr. Handley on 10/16 for exploration of the right groin. She required debridement with a sartorius muscle flap and wound VAC placement. Calf incision was also debrided. Cultures were obtained. She is currently receiving vancomycin and Zosyn. When I saw her earlier today, she was holding steady. She was receiving an amiodarone infusion. She had just had a liquid bowel movement. She denies fever and her white blood cell count is 12,000. She feels that her right foot is stable. PAST MEDICAL HISTORY: * Aortic stenosis. * Peripheral arterial disease. * Hypertension. * Diabetes mellitus type 2. * Dyslipidemia. * Congestive heart failure. * Atrial fibrillation. * Obstructive sleep apnea. PAST SURGICAL HISTORY: * Percutaneous coronary intervention. * Transcatheter aortic valve implantation. * Pacemaker placement. * Cholecystectomy. * Hysterectomy. * Appendectomy. * Knee surgery. ALLERGIES: None. MEDICATIONS: * Vancomycin. * Zosyn. * Apixaban. * Atorvastatin. * Clopidogrel. * Colace. * Furosemide. * Levothyroxine. FAMILY HISTORY: Noncontributory. SOCIAL HISTORY: She states that she is and she lives locally in [place]. She does not drink or smoke. PHYSICAL EXAMINATION: VITAL SIGNS: She is afebrile with stable vital signs. GENERAL: She is a pleasant, elderly female, sitting up in bed, looking stable. HEENT: Sclerae anicteric. Mouth is clear. NECK: Supple. LUNGS: Clear to auscultation bilaterally. HEART: Regular rate and rhythm. ABDOMEN: Obese, soft, and nontender. She does have a wound VAC in place at the right groin. EXTREMITIES: The right calf area is bandaged with evidence of prior bleeding medially. The right foot was examined. She appears to have perfusion of the area and she does have some scattered areas of superficial eschar. The toes are a bit pale. LABORATORY DATA: Her white blood cell count is 12,000, hemoglobin 7.6, platelets 221,000. Creatinine 1.7 and rising. She did have multiple cultures taken that are growing Gram-positive cocci and Gram-negative rods. IMAGING STUDIES: CT scan when she came back in did show a patent graft. She did have some loculated fluid collections containing gas at the right inguinal area adjacent to the proximal portion of the graft. IMPRESSION: * Postoperative infection following recent vascular surgery to deal with an ischemic right lower extremity. Original procedure was right femoral to popliteal bypass. The other note mentions right femoral to anterior tibial bypass. When she came back into the hospital, she required debridement with sartorius muscle flap. This appears to be a polymicrobial infection with Gram-positive cocci and Gram-negative rods currently on wound cultures. She is clinically stable at this time. * Diabetes mellitus type 2. * Aortic stenosis with recent transcatheter aortic valve implantation. * Suspected chronic kidney disease currently with creatinine 1.7. She may have an acute kidney injury. PLAN: She will continue with vancomycin and Zosyn for now. I will follow up her culture results and adjust antibiotics accordingly. Duration of therapy is unclear at this time. She will need aggressive wound care at the right groin, as well as the right lower leg. We will see if her right foot heals up well. I suspect she will need to go to rehab following this hospitalization. I will continue to follow her closely and I thank you for allowing me to participate in her care. 75 minutes time spent [id number], review of medical record including labs/cultures/imaging, orders and documentation. Yoel Burt MD TID: [id number] RECEIPT: [id number] ESTHER NORRIS
[2024-10-19 07:49] LABS: BASOPHILS % (AUTO) 0.2 % (0-1); EOSINOPHILS # (AUTO) 0.1 X10'3 (0-0.9); EOSINOPHILS % (AUTO) 0.6 % (0-6); HEMATOCRIT 25.3 % (35.0-45.0); HEMOGLOBIN 7.6 g/dl (12.0-16.0); LYMPHOCYTES # (AUTO) 1.1 X10'3 (1.1-4.8); LYMPHOCYTES % (AUTO) 9.4 % (21-51); MEAN CORPUSCULAR HEMOGLOBIN 21.4 PG (27.0-31.0); MEAN CORPUSCULAR HGB CONC 29.8 g/dL (33.0-36.5); MEAN CORPUSCULAR VOLUME 71.9 FL (78-98); MEAN PLATELET VOLUME 9.1 FL (7.4-10.4); MONOCYTES # (AUTO) 1.2 X10'3 (0-0.9); MONOCYTES % (AUTO) 10.6 % (2-12); NEUTROPHILS # (AUTO) 9.1 X10'3 (1.8-7.7); NEUTROPHILS % (AUTO) 79.2 % (42-75); PLATELET COUNT 211 X10'3 (140-440); RED BLOOD COUNT 3.53 X10'6 (4.20-5.60); WHITE BLOOD COUNT 11.4 X10'3 (4.5-11.0)
[2024-10-19 08:09] LABS: ALANINE AMINOTRANSFERASE 12 U/L (12-78); ALBUMIN 1.8 G/DL (3.4-5.0); ALBUMIN/GLOBULIN RATIO 0.5 (1.1-1.5); ALKALINE PHOSPHATASE 86 IU/L (46-116); ANION GAP 11 (8-16); ASPARTATE AMINO TRANSFERASE 20 U/L (10-37); BILIRUBIN,TOTAL 0.7 MG/DL (0.1-1.0); BLOOD UREA NITROGEN 36 MG/DL (7-18); BUN/CREATININE RATIO 20.1 (10.0-20.0); CALCIUM 7.3 MG/DL (8.5-10.1); CHLORIDE 101 MMOL/L (99-107); CREATININE 1.79 MG/DL (0.40-0.90); GLUCOSE 100 MG/DL (70-104); MAGNESIUM 1.7 MG/DL (1.5-2.4); POTASSIUM 3.3 MMOL/L (3.5-5.1); SODIUM 135 MMOL/L (135-145); TOTAL CARBON DIOXIDE 23.2 MMOL/L (24-32); TOTAL PROTEIN 5.7 G/DL (6.4-8.2); eCRCL 19 ML/MIN; eGFR 27 ML/MIN
[2024-10-19] MEDS ORDERED: potassium Cl 20 mEq SR tablet PO PRN (08:45)
[2024-10-19] MEDS ORDERED: magnesium Cl slow-release 64mg tablet PO PRN (08:45)
[2024-10-19] MEDS: potassium Cl 20 mEq SR tablet PO PRN (09:32)
[2024-10-19] MEDS: normal saline 1000ml 1,000 ML IV SCH (10:35)
[2024-10-19] MEDS ORDERED: iohexol 300 MG/1 ML 50ml polymer ONE (11:05)
[2024-10-19] MEDS ORDERED: heparin 10,000 units/1 ML INJ ONE (11:05)
--- NOTE | 2024-10-19 11:13 | PROGRESS NOTE ---
Progress Note ID Providers to CC ~ Progress Note Progress Note: pt complains of pain-graft occluded-pt needs right leg graft thrombectomy with possible revision-discussed procedure including risks/benefits/alternatives HENRRY RILEY MD Oct 19, 2024 11:13
[2024-10-19] MEDS ORDERED: NORepinephrine 8mg/ 250ml NS 250 ML IV ONE (11:42)
[2024-10-19] MEDS ORDERED: sevoflurane 250ml liquid IH ONE (11:45)
[2024-10-19] MEDS ORDERED: fentaNYL /PF 50mcg/ml 5ml ampule ONE (11:47)
[2024-10-19] MEDS ORDERED: ceFAZolin 1000mg inj ONE ×2 (12:46)
[2024-10-19] MEDS: heparin 10,000 units/1 ML INJ IR ONE (14:09)
[2024-10-19] MEDS ORDERED: heparin 1,000unit/ml 10ml vial 10 ML ONE (14:31)
[2024-10-19] MEDS ORDERED: protamine sulfate 10mg/ml inj. ONE (15:07)
[2024-10-19] MEDS ORDERED: albumin (Human) 5% 250ml 250 ML IV ONE (15:31)
[2024-10-19] MEDS ORDERED: sugammadex 200mg/2ml injection IV ONE (15:35)
[2024-10-19 15:47] LABS: INR 1.7 INR; PROTHROMBIN TIME 16.3 SECONDS (9.0-12.0)
[2024-10-19] MEDS ORDERED: potassium Cl 40MEQ/270ML bag 250 ML IV PRN (16:40)
--- NOTE | 2024-10-19 16:40 | OPERATIVE REPORT ---
Operative Report Providers to CC ~ Date of Procedure: Oct 19, 2024 Pre-Operative Diagnosis: rle ali with graft occlusion Post-Operative Diagnosis SAME as PRE-Op Procedure Performed right fem distal graft thrombectomy/graft revision/angio Surgeon: sonja vidales Anesthesiologist: Geronimo Li Type of Anesthesia: General Findings: occluded graft Estimated Blood Loss: 350 ml Specimen Removed: cecil thrombus HENRRY RILEY MD Oct 19, 2024 16:40
[2024-10-19] MEDS: niCARDipine-NS 40mg/200ml IVPB 200 ML IV ONE (16:42)
--- NOTE | 2024-10-19 16:44 | RADIOLOGY REPORT ---
CHEST RADIOGRAPH Indication: post line placement Technique: Single frontal view of the chest was obtained Comparison: DI CHEST,SINGLE VIEW on DOS: 10/15/24, DI CHEST,SINGLE VIEW on DOS: 09/13/24 FINDINGS: Lines and Tubes: Interval placement of a right IJ approach line which terminates in the plane of the SVC. Left chest wall pacing device. Prosthetic cardiac valve. Lungs and Pleura: Similar small left pleural effusion with adjacent airspace disease. No pneumothorax. Cardiomediastinal contours: Unchanged Bones: No acute osseous abnormality. IMPRESSION: Interval placement of a right IJ approach line which terminates in the plane of the SVC. Similar small left pleural effusion with adjacent airspace disease.
[2024-10-19] MEDS: magnesium sulf-water 4G/100mL 100 ML IV PRN (16:51)
--- NOTE | 2024-10-19 16:51 | PROGRESS NOTE- Residence ---
Progress Note - Resident Providers to CC Resident Creating Document: AMY SANCHES, RES ~ Antibiotic Timeout Antibiotic Ordered?: Yes Subjective The patient was seen and examined at bedside today. She had absent pedal pulses last night for which Dr. Handley was consulted. Arterial ultrasound was done which showed no blood flow through the graft. She was taken for emergent surgery for right leg graft thrombectomy with revision this afternoon. Objective Vital Signs Date Time Temp Pulse Resp B/P (MAP) Pulse Ox O2 Delivery O2 Flow Rate FiO2 10/19/24 12:52 98.0 95 13 83/48 10/19/24 11:40 97 10/19/24 11:00 Room Air 10/18/24 23:44 0 21 Result Diagram: 10/19/2462010/19/24620 Elderly female, awake and alert, no acute distress. HEENT: Conjunctiva pink, Sclera clear, Mucus Membranes moist. Neck: Supple without masses and tenderness. Resp: Bilateral equal air entry present, mild crackles heard bilaterally Heart: Irregular rate and rhythm, normal S1 and S2 without murmur Abdomen: Soft and non tender no organomegaly Extremities: Left side lower extremity: 2+ edema, weak pulse Right side: Groin dressed in surgical dressing, tender, right foot multiple ulcers and tender, cold with pedal pulses Inguinal area: Surgical side mild erythema and mild tenderness Skin: Warm and Dry. Neurological: Speech is clear, alert, and oriented x 4, no gross neurological deficits Coagulation Studies Laboratory Tests Test 10/19/24 15:00 Prothrombin Time 16.3 SECONDS (9.0-12.0) H INR International Normalized Ratio 1.7 INR Activated Partial Thromboplast Time SECONDS (22-32) Coagulation Comments Assessment Assessment 84 years old female with history of AFib, CHF with reduced ejection fraction, aortic stenosis status post TAVR, sick sinus syndrome status post ppm, coronary artery disease with recent PCI of the proximal LCX on 07/02, presented with nonhealing surgical site wound. She is being admitted into the hospital for further evaluation and management. Plan Plan Right LE graft occlusion s/p graft thrombectomy with revision, 10/19/2024 Wound dehiscence of Fem-pop bypass status post wound debridement on 10/16/2024 Infected surgical site History of femoral popliteal bypass (09/13/2024) Patient has acute limb ischemia and went for graft thrombectomy today by Dr. Handley. Follow up with operative findings. Blood cultures negative till date. Wound cultures grew Enterococcus faecalis, Pseudomonas aeruginosa, Corynebacterium striatum. Infectious diseases on board. Continue IV Zosyn. Vancomycin discontinued by Dr. Handley. Atrial fibrillation with rapid ventricular rate Carvedilol discontinued and started the patient on metoprolol tartrate 25 mg b.i.d. Patient is also on amiodarone 200 mg b.i.d. Avoid calcium channel blockers. Continue telemetry monitoring. Eliquis 5 mg b.i.d. started. Acute exacerbation of CHF with improved ejection LVEF 45%, moderate MR, [id number] TR. JOSE ARMANDO likely secondary to vasomotor nephropathy Creatinine worsening. Started the patient on IV fluids. Continue to monitor. Iron-deficiency anemia Iron supplementation on discharge. Hypothyroidism TSH 20.93, normal free T4 and T3. Continue home levothyroxine 25 mcg. CAD s/p LCA stenting (06/2024) Aortic stenosis s/p TAVR Sick sinus syndrome s/p ppm Started the patient on Plavix. Continue outpatient cardiology follow up. Code Status: Full code DVT prophylaxis: Eliquis Analgesia/sedation: Tylenol Line/tube: Peripheral Nutrition: Heart healthy diet Prognosis: Guarded Disposition: Patient is currently in the ICU. Management as per Dr. Handley. Amy Sanches MD Internal Medicine Resident, PGY-1 Date of Service: Oct 19, 2024 Billing Provider: KAMARI ZAPATA MD Common Visit Codes: [id number] INP/OBS CARE(HIGH) AMY SANCHES, RES Oct 19, 2024 16:51 KAMARI ZAPATA MD Oct 29, 2024 17:05
[2024-10-19] MEDS: JUVEN Smoothie Arginine/Glut./Ca2+Bmb (Juven 19.3pkt) 240ml cup PO SCH (17:30)
[2024-10-19] MEDS ORDERED: amiodarone inj. 450 MG in dextrose 5%-water 241 ML IV SCH (17:40)
[2024-10-19] MEDS ORDERED: amiodarone 50MG/ML inj IV ONE (17:40)
[2024-10-19] MEDS: amiodarone 150mg/dext, iso-os 100 ML IV ONE ×2 (17:46→17:59)
[2024-10-19] MEDS: amiodarone/D5 360MG/200ML BAG 200 ML IV SCH (18:36)
[2024-10-19] MEDS: amiodarone 200mg tablet PO SCH (18:51)
--- NOTE | 2024-10-19 19:20 | VASCULAR REPORT ---
LEFT Lower Extremity Arterial Duplex Date: 10/19/2024 05:15 PM Clinical History: PAD Comparison: VASC VL ARTERIAL on DOS: 10/18/24 Technique: Duplex Doppler evaluation including color Doppler and spectral/pulsed waveform analysis of the lower extremity arteries was performed. Finding: LEFT: Peak systolic velocities are as follows: CUSTOM TAILOR 105 cm/s Deep femoral 75 cm/s SFA proximal 407 cm/s SFA mid-portion 0 cm/s SFA distal 0 cm/s Popliteal not seen Posterior tibial 8 cm/s Peroneal not seen cm/s Dorsalis pedis 31 cm/s The waveforms are monophasic wave flow seen in the left common femoral artery and profunda femoral ar mannie. There is high-grade stenosis in the proximal left SFA greater than 80%. Very little flow is det ected in the left posterior tibial artery. CRISPIN not performed due to pain and recent surgery. REFERENCE VALUES, [facility]) vascular Imaging Lab Criteria: Peak systolic velocity ranges (in cm/sec) are as follows: <150 cm/s - <20 % stenosis 150-200 cm/s - 20-49% stenosis 200-300 cm/s - 50-75% stenosis >300 cm/s -> 75% stenosis The waveforms are monophasic wave flow seen in the left common femoral artery and profunda femoral ar mannie. There is high-grade stenosis in the proximal left SFA greater than 80%. Very little flow is det ected in the left posterior tibial artery. CRISPIN not performed due to pain and recent surgery.
[2024-10-19] MEDS: HYDROcodone/acetaminophen 10/325mg tab PO PRN (19:24)
[2024-10-19] MEDS: magnesium sulf-water 2g/50mL 50 ML IV PRN (20:59)
[2024-10-20] VITALS (27 sets, daily range): BP systolic 110–172; BP diastolic 49–97; PULSE 87–139; RESP 10–20; O2SAT 96–100
[2024-10-20 01:25] LABS: EOSINOPHILS % (AUTO) 0 % (0-6); MONOCYTES # (AUTO) 0.5 X10'3 (0-0.9)
[2024-10-20 01:30] LABS: BASOPHILS % (AUTO) 0.1 % (0-1); LYMPHOCYTES # (AUTO) 0.4 X10'3 (1.1-4.8)
[2024-10-20 01:32] LABS: HEMATOCRIT 24.5 % (35.0-45.0); HEMOGLOBIN 7.7 g/dl (12.0-16.0); LYMPHOCYTES % (AUTO) 3.7 % (21-51); MEAN CORPUSCULAR HEMOGLOBIN 23.5 PG (27.0-31.0); MEAN CORPUSCULAR HGB CONC 31.2 g/dL (33.0-36.5); MEAN CORPUSCULAR VOLUME 75.3 FL (78-98); MEAN PLATELET VOLUME 8.9 FL (7.4-10.4); MONOCYTES % (AUTO) 4.7 % (2-12); NEUTROPHILS # (AUTO) 10.6 X10'3 (1.8-7.7); NEUTROPHILS % (AUTO) 91.5 % (42-75); PLATELET COUNT 153 X10'3 (140-440); RED BLOOD COUNT 3.25 X10'6 (4.20-5.60); RED CELL DISTRIBUTION WIDTH 23.7 % (11.5-14.5); WHITE BLOOD COUNT 11.6 X10'3 (4.5-11.0)
[2024-10-20 01:49] LABS: NUCLEATED RED BLOOD CELLS 1 /100WBC (0-0); PLATELET ESTIMATE NORMAL; TOTAL CELLS COUNTED 100
[2024-10-20 01:50] LABS: ANISOCYTOSIS 3+; HYPOCHROMASIA 2+
[2024-10-20 01:51] LABS: BURR CELLS 2+; ELLIPTOCYTES 1+; MICROCYTOSIS 2+
[2024-10-20 02:17] LABS: ALBUMIN 1.7 G/DL (3.4-5.0); ALBUMIN/GLOBULIN RATIO 0.6 (1.1-1.5); ANION GAP 12 (8-16); ASPARTATE AMINO TRANSFERASE 11 U/L (10-37); BILIRUBIN,TOTAL 0.8 MG/DL (0.1-1.0); BLOOD UREA NITROGEN 31 MG/DL (7-18); BUN/CREATININE RATIO 20.1 (10.0-20.0); CALCIUM 7.3 MG/DL (8.5-10.1); CHLORIDE 106 MMOL/L (99-107); CREATININE 1.54 MG/DL (0.40-0.90); GLUCOSE 215 MG/DL (70-104); MAGNESIUM 2.8 MG/DL (1.5-2.4); PHOSPHORUS 3.9 MG/DL (2.3-4.5); POTASSIUM 3.9 MMOL/L (3.5-5.1); SODIUM 138 MMOL/L (135-145); TOTAL CARBON DIOXIDE 20.3 MMOL/L (24-32); TOTAL PROTEIN 4.7 G/DL (6.4-8.2); eCRCL 23 ML/MIN; eGFR 32 ML/MIN
[2024-10-20 02:18] LABS: ALANINE AMINOTRANSFERASE 12 U/L (12-78); ALKALINE PHOSPHATASE 69 IU/L (46-116)
[2024-10-20] MEDS: amiodarone 150mg/dext, iso-os 100 ML IV ONE (09:07)
[2024-10-20] MEDS: COMMUNICATION ORDER 1 EA MISC MC ONE (09:15)
[2024-10-20] MEDS: HYDROmorphone inj. 0.5 MG/0.5 ML DISP.SYRIN IV PRN (10:30)
[2024-10-20] MEDS: ondansetron/PF 4mg/2ml inj IV PRN (10:46)
--- NOTE | 2024-10-20 11:03 | PROGRESS NOTE ---
Progress Note ID Providers to CC ~ Progress Note Progress Note: awake/vss/rle well perfused/lle now with faint doppler/labs noted a/p 1. s/p rle graft revision-doing well/cont antibx-pt HENRRY RILEY MD Oct 20, 2024 11:03
[2024-10-20] MEDS: hydrALAZINE 20mg/ml inj. IV PRN (12:44)
[2024-10-20] MEDS ORDERED: APIX5TAB3 PO (13:45)
[2024-10-20] MEDS ORDERED: hydrALAZINE 20mg/ml inj. IV SCH (14:00)
--- NOTE | 2024-10-20 14:39 | PROGRESS NOTE- Residence ---
Progress Note - Resident Providers to CC Resident Creating Document: AMY SANCHES, RES ~ Antibiotic Timeout Antibiotic Ordered?: Yes Subjective The patient was seen and examined at bedside today. She is in the ICU currently. Her is also at the bedside. She has no new complaints. She is thinking every one for taking care of her. Objective Vital Signs Date Time Temp Pulse Resp B/P (MAP) Pulse Ox O2 Delivery O2 Flow Rate FiO2 10/20/24 13:59 97.2 99 16 168/59 (95) 99 Room Air 10/20/24 08:09 0 21 Result Diagram: 10/20/24 0040 10/20/24 0135 Elderly female, awake and alert, no acute distress. HEENT: Conjunctiva pink, Sclera clear, Mucus Membranes moist. Neck: Supple without masses and tenderness. Resp: Bilateral equal air entry present, mild crackles heard bilaterally Heart: Tachycardia, Irregular rate and rhythm, normal S1 and S2 without murmur Abdomen: Soft and non tender no organomegaly Extremities: Right lower extremity groin, leg and foot covered in surgical bandage Skin: Warm and Dry. Neurological: Speech is clear, alert, and oriented x 4, no gross neurological deficits Coagulation Studies Laboratory Tests Test 10/19/24 15:00 10/19/24 17:15 Prothrombin Time 16.3 SECONDS (9.0-12.0) H INR International Normalized Ratio 1.7 INR Activated Partial Thromboplast Time SECONDS (22-32) APTT (Heparin Protocol) 33 SECONDS (45-75) L Coagulation Comments Assessment Assessment An 84 years old female with history of AFib, CHF with reduced ejection fraction, aortic stenosis status post TAVR, sick sinus syndrome status post ppm, coronary artery disease with recent PCI of the proximal LCX on 07/02, presented with nonhealing surgical site wound. She is being admitted into the hospital for further evaluation and management. Plan Plan Right LE graft occlusion s/p graft thrombectomy with revision, 10/19/2024 Wound dehiscence of Fem-pop bypass status post wound debridement, 10/16/2024 Infected surgical site History of femoral popliteal bypass (09/13/2024) Patient is currently in the ICU. Wound care following. Blood cultures negative till date. Wound cultures grew Enterococcus faecalis, Pseudomonas aeruginosa, Corynebacterium striatum, bacteroids fragilis. Infectious diseases on board. Continue IV Zosyn. Vancomycin discontinued by Dr. Handley. Atrial fibrillation with rapid ventricular rate Patient is currently on IV amiodarone drip. Heart rate ranging in 120s. Avoid calcium channel blockers. Continue telemetry monitoring. Continue Eliquis 5 mg b.i.d. Hypertension Patient is currently on nicardipine drip and IV hydralazine p.r.n. Acute exacerbation of CHF with improved ejection LVEF 45%, moderate MR, [id number] TR. JOSE ARMANDO likely secondary to vasomotor nephropathy Kidney function getting better. Continue IV fluids. Continue to monitor. Iron-deficiency anemia Iron supplementation on discharge. Hypothyroidism TSH 20.93, normal free T4 and T3. Continue home levothyroxine 25 mcg. CAD s/p LCA stenting (06/2024) Aortic stenosis s/p TAVR Sick sinus syndrome s/p ppm Started the patient on Plavix. Continue outpatient cardiology follow up. Code Status: Full code DVT prophylaxis: Eliquis Analgesia/sedation: Tylenol Line/tube: Peripheral Nutrition: Heart healthy diet Prognosis: Guarded Disposition: Patient is currently in the ICU. Management as per Dr. Handley. Amy Sanches MD Internal Medicine Resident, PGY-1 Patient is seen and examined in the ICU. Patient is being managed in the ICU by group cio and Dr. Naik Date of Service: Oct 20, 2024 Billing Provider: CARO VALLECILLO MD Common Visit Codes: [id number] INP/OBS CARE(HIGH) AMY SANCHES, RES Oct 20, 2024 14:39 CARO VALLECILLO MD Oct 21, 2024 08:14
[2024-10-20] MEDS ORDERED: hydrALAZINE 20mg/ml inj. IV PRN (14:45)
[2024-10-20] MEDS: hydrALAZINE 20mg/ml inj. IV ONE (14:56)
[2024-10-21] VITALS (31 sets, daily range): BP systolic 99–159; BP diastolic 50–115; PULSE 87–138; RESP 10–23; TEMP 97.6–98; O2SAT 96–100
[2024-10-21 02:13] LABS: BASOPHILS % (AUTO) 0.1 % (0-1); LYMPHOCYTES # (AUTO) 1.1 X10'3 (1.1-4.8)
[2024-10-21 02:15] LABS: EOSINOPHILS % (AUTO) 0 % (0-6); MEAN CORPUSCULAR HGB CONC 30.4 g/dL (33.0-36.5); MEAN CORPUSCULAR VOLUME 75.9 FL (78-98); MEAN PLATELET VOLUME 8.9 FL (7.4-10.4); MONOCYTES # (AUTO) 1.6 X10'3 (0-0.9); MONOCYTES % (AUTO) 10.4 % (2-12); NEUTROPHILS % (AUTO) 82.5 % (42-75); PLATELET COUNT 173 X10'3 (140-440); RED BLOOD COUNT 2.58 X10'6 (4.20-5.60); RED CELL DISTRIBUTION WIDTH 24.1 % (11.5-14.5); WHITE BLOOD COUNT 15.8 X10'3 (4.5-11.0)
[2024-10-21 02:20] LABS: HEMATOCRIT 19.6 % (35.0-45.0); HEMOGLOBIN 5.9 g/dl (12.0-16.0)
[2024-10-21 02:23] LABS: ALANINE AMINOTRANSFERASE 11 U/L (12-78); ALBUMIN 1.6 G/DL (3.4-5.0); ALBUMIN/GLOBULIN RATIO 0.6 (1.1-1.5); ALKALINE PHOSPHATASE 73 IU/L (46-116); ANION GAP 8 (8-16); ASPARTATE AMINO TRANSFERASE 20 U/L (10-37); BILIRUBIN,TOTAL 0.6 MG/DL (0.1-1.0); BLOOD UREA NITROGEN 32 MG/DL (7-18); BUN/CREATININE RATIO 25.2 (10.0-20.0); CALCIUM 7.1 MG/DL (8.5-10.1); CHLORIDE 102 MMOL/L (99-107); CREATININE 1.27 MG/DL (0.40-0.90); GLUCOSE 153 MG/DL (70-104); MAGNESIUM 2.2 MG/DL (1.5-2.4); PHOSPHORUS 2.3 MG/DL (2.3-4.5); POTASSIUM 3.3 MMOL/L (3.5-5.1); SODIUM 134 MMOL/L (135-145); TOTAL CARBON DIOXIDE 23.8 MMOL/L (24-32); TOTAL PROTEIN 4.5 G/DL (6.4-8.2); eCRCL 27 ML/MIN; eGFR 40 ML/MIN
[2024-10-21] MEDS: potassium Cl 20mEq/100mL bag 100 ML IV PRN (02:37)
[2024-10-21 09:18] LABS: HEMATOCRIT 29.5 % (35.0-45.0); HEMOGLOBIN 9.4 g/dl (12.0-16.0); MEAN CORPUSCULAR HEMOGLOBIN 25.7 PG (27.0-31.0); MEAN CORPUSCULAR VOLUME 80.3 FL (78-98); PLATELET COUNT 163 X10'3 (140-440); RED BLOOD COUNT 3.67 X10'6 (4.20-5.60); RED CELL DISTRIBUTION WIDTH 21.8 % (11.5-14.5); WHITE BLOOD COUNT 17.5 X10'3 (4.5-11.0)
--- NOTE | 2024-10-21 10:07 | OPERATIVE REPORT ---
DATE OF SURGERY: 10/19/2024 DICTATING PHYSICIAN: Case Handley MD PREOPERATIVE DIAGNOSIS: Right lower extremity acute limb ischemia, secondary graft occlusion. POSTOPERATIVE DIAGNOSIS: Right lower extremity acute limb ischemia, secondary graft occlusion. PROCEDURES PERFORMED: * Right femoral anterior tibial graft revision using a distal interposition graft. * Graft thrombectomy. * Intraoperative angio. * Vein harvesting. SURGEON: Case Handley MD RODEO RIDER: Jorge L. ANESTHESIA: General/Dr. Li. DRAINS: None. INDICATIONS FOR OPERATION: An 84-year-old female with history of a previous right femoral-anterior tibial bypass graft, developed graft occlusion with leg ischemia, taken to surgery for graft revision. INTRAOPERATIVE FINDINGS: The patient had an occluded graft with clot in the anterior tibia. Anterior tibia distally was a calcified vessel; however, bypass graft was subsequently placed to the anterior tibial distal to the initial anastomosis. Good flow obtained. There was a large amount of clot present in the previously placed [place] graft. DESCRIPTION OF PROCEDURE: The patient was placed supine on the operating table. After induction of general anesthesia and placement of endotracheal tube, the legs were prepped and draped. Previous right lateral calf incision was reopened. Graft was identified in the proximal portion of the incision. Graft found to be occluded. Distal anterior tibia was simply exposed and found to be somewhat calcified. Attention was then turned to the left thigh where a piece of saphenous vein was identified and harvested. The patient was heparinized. The incision was made in the distal aspect of the previously placed [place]ah graft. A large amount of clot removed. Good inflow was reestablished. The patient was heparinized with 6,000 units of heparin. Anterior tibia was occluded proximally and distally as well as possible seen proximally and distally. Limited endarterectomy was performed. Vein was reversed and distal anastomosis sewn in an end-to-side fashion with suture of 6-0 Prolene. A 2-mm shunt was used to facilitate constructive anastomosis given the plaque. Graft appeared to flush well. Large initial clot had been removed from the previously placed graft and flow reestablished, end-to-side anastomosis was constructed between the old [place]Noah graft and a new vein using a running suture of 6-0 Prolene. The flow was then reestablished to the new vein graft. The patient has good flow by Doppler. Intraoperative drains were then performed. An 18-Gelco placed in the [place]Noah and constructed and found to have good flow in the anterior tibia and at the level of the ankle. Hemostasis was then obtained. Left thigh incision was closed in layers. Right calf was closed using interrupted vertical mattress of 2-0 nylon. Dressing was applied and the patient was transferred to the ICU in critical condition. Case Handley MD TID: [id number] RECEIPT: [id number] SHEREE/DANIEL/SPARKLE
[2024-10-21] MEDS: digoxin 250mcg/ml 2ml ampule IV ONE ×2 (10:58→14:16)
--- NOTE | 2024-10-21 12:56 | VASCULAR REPORT ---
EXAM: [facility] CRISPIN ANKLE/BRACHIAL INDEX CLINICAL HISTORY: Weak pedal pulse Peripheral vascular disease COMPARISON: [facility] CRISPIN on DOS: 07/29/24 TECHNIQUE: Bilateral systolic ankle and brachial pressures are obtained, with ankle pulse volume waveforms and i ndices. FINDINGS: Pressures: Right Left Brachial 144 mmHg n/a mmHg PT n/a mmHg nc mmHg DP n/a mmHg nv mmHg CRISPIN: Right Left na Pulse volume waveforms: n IMPRESSION: Nondiagnostic exam due to noncompressible pedal arteries in the left lower extremity suggesting media l arterial calcification. No pressures obtained in the right lower extremity due to open wounds from recent vascular surgery. 1.0-1.4: normal 0.91-0.99 borderline 0.9: abnormal (i.e. PAD) 0.4-0.9: [id number] PAD <0.4: suggestive of severe PAD
--- NOTE | 2024-10-21 14:32 | PROGRESS NOTE ---
Progress Note Dictate Providers to CC ~ Subjective Subjective: She is currently in the ICU. She is on an amiodarone infusion. She has atrial fibrillation with a rapid ventricular rate. Wound VAC was changed today. There has been some concern about the distal left lower extremity. is at the bedside. Vancomycin was stopped and linezolid was started. Objective Objective: GENERAL: She is a pleasant, elderly female, sitting up in bed, looking stable. LUNGS: Clear to auscultation bilaterally. HEART: Tachycardic and irregularly irregular ABDOMEN: Obese, soft, and nontender. She does have a wound VAC in place at the right groin. EXTREMITIES: The right calf area is bandaged. The right foot appears to be perfused and she does have some scattered areas of superficial eschar. Left foot appears to be perfused at this time, but nursing reports weak Doppler pulse. Lab Results: 10/21/24 0859 10/21/24 0859 Lab comments: Multiple cultures with four different organisms including Corynebacterium striatum, Pseudomonas, Enterococcus and Bacteroides. Problem\Assessment\Plan Additional Plan 1. Postoperative infection following recent vascular surgery to deal with an ischemic right lower extremity. Original procedure was right femoral to popliteal bypass (vs. anterior tibial bypass) s/p debridement with sartorius muscle flap Polymicrobial infection with Pseudomonas, Enterococcus, Corynebacterium striatum, and Bacteroides 2. Diabetes mellitus type 2 3. Aortic stenosis s/p recent [place] 4. Suspected chronic kidney disease currently with creatinine 1.3 5. Atrial fibrillation with rapid ventricular rate Continue Zosyn Continue linezolid It is unclear if she is going home or rehab soon Could potentially change management coordinator to full oral regimen with linezolid, ciprofloxacin and metronidazole Quinolone will be problematic if she is on amiodarone May need to see if she has coverage for home IV antibiotics if going home Wound care Watch left foot closely We will need to change CVC to PICC if going home with IV therapy NADIRA KUMAR MD Oct 21, 2024 14:32
--- NOTE | 2024-10-21 15:53 | PROGRESS NOTE ---
Progress Note ID Providers to CC ~ Progress Note Progress Note: pain improving/vss/RLE well perfused/LLE cool/labs noted a/p 1. s/p RLE graft revision-doing well 2. LLE ischemia-pt assymptomatic but has very little flow to left foot- may need surgical intervention HENRRY RILEY MD Oct 21, 2024 15:53
--- NOTE | 2024-10-21 16:04 | PROGRESS NOTE- Residence ---
Progress Note - Resident Providers to CC Resident Creating Document: AMY SANCHES, RES ~ Antibiotic Timeout Antibiotic Ordered?: Yes Subjective The patient was seen and examined at bedside today. No new complaints. She is being digitalized for AFib. Management by Dr. Handley. Patient might require an intervention to her left lower extremity as per Dr. Handley. Objective Vital Signs Date Time Temp Pulse Resp B/P (MAP) Pulse Ox O2 Delivery O2 Flow Rate FiO2 10/21/24 15:29 14 10/21/24 15:00 98.1 100 139/74 (95) 98 10/21/24 12:00 Room Air 10/20/24 23:49 0 21 Result Diagram: 10/21/24 0859 10/21/24 0859 Elderly female, awake and alert, no acute distress. HEENT: Conjunctiva pink, Sclera clear, Mucus Membranes moist. Neck: Supple without masses and tenderness. Resp: Bilateral equal air entry present, mild crackles heard bilaterally Heart: Tachycardia, Irregular rate and rhythm, normal S1 and S2 without murmur Abdomen: Soft and non tender no organomegaly Extremities: Right lower extremity groin, leg and foot covered in surgical bandage Skin: Warm and Dry. Neurological: Speech is clear, alert, and oriented x 4, no gross neurological deficits Coagulation Studies Laboratory Tests Test 10/19/24 15:00 10/19/24 17:15 Prothrombin Time 16.3 SECONDS (9.0-12.0) H INR International Normalized Ratio 1.7 INR Activated Partial Thromboplast Time SECONDS (22-32) APTT (Heparin Protocol) 33 SECONDS (45-75) L Coagulation Comments Assessment Assessment An 84 years old female with history of AFib, CHF with reduced ejection fraction, aortic stenosis status post TAVR, sick sinus syndrome status post ppm, coronary artery disease with recent PCI of the proximal LCX on 07/02, presented with nonhealing surgical site wound. She is being admitted into the hospital for further evaluation and management. Plan Plan Right LE graft occlusion, POA s/p graft thrombectomy with revision, 10/19/2024 Wound dehiscence of Fem-pop bypass status post wound debridement, 10/16/2024 Infected surgical site History of femoral popliteal bypass (09/13/2024) Patient is currently in the ICU. Wound care following. Blood cultures negative till date. Wound cultures grew Enterococcus faecalis, Pseudomonas aeruginosa, Corynebacterium striatum, bacteroids fragilis. Infectious diseases on board. Continue IV Zosyn and linezolid. Atrial fibrillation with rapid ventricular rate Patient is currently on IV amiodarone drip and p.o. digoxin. Heart rate ranging in 120s. Continue telemetry monitoring. Continue Eliquis 5 mg b.i.d. Hypertension IV hydralazine p.r.n. Acute exacerbation of CHF with improved ejection, POA, resolved LVEF 45%, moderate MR, [id number] TR. JOSE ARMANDO likely secondary to vasomotor nephropathy, POA Kidney function getting better. Continue IV fluids. Continue to monitor. Iron-deficiency anemia Iron supplementation on discharge. Hypothyroidism TSH 20.93, normal free T4 and T3. Continue home levothyroxine 25 mcg. CAD s/p LCA stenting (06/2024) Aortic stenosis s/p TAVR Sick sinus syndrome s/p ppm Started the patient on Plavix. Continue outpatient cardiology follow up. Code Status: Full code DVT prophylaxis: Eliquis Analgesia/sedation: Tylenol Line/tube: Peripheral Nutrition: Heart healthy diet Prognosis: Guarded Disposition: Patient is currently in the ICU. Management as per Dr. Handley. Amy Sanches MD Internal Medicine Resident, PGY-1 Patient is seen and examined with resident we will continue to follow Date of Service: Oct 21, 2024 Billing Provider: CARO VALLECILLO MD Common Visit Codes: [id number] INP/OBS CARE(HIGH) AMY SANCHES, RES Oct 21, 2024 16:04 CARO VALLECILLO MD Oct 22, 2024 08:53
[2024-10-21] MEDS: linezolid 600mg/300ml PREMIX 300 ML IV SCH (20:00)
[2024-10-22] VITALS (26 sets, daily range): BP systolic 120–162; BP diastolic 46–78; PULSE 77–120; RESP 12–25; O2SAT 97–100
[2024-10-22 02:20] LABS: ALANINE AMINOTRANSFERASE 8 U/L (12-78); ALBUMIN 1.6 G/DL (3.4-5.0); ALBUMIN/GLOBULIN RATIO 0.5 (1.1-1.5); ALKALINE PHOSPHATASE 76 IU/L (46-116); ANION GAP 6 (8-16); ASPARTATE AMINO TRANSFERASE 19 U/L (10-37); BLOOD UREA NITROGEN 26 MG/DL (7-18); BUN/CREATININE RATIO 23.9 (10.0-20.0); CHLORIDE 104 MMOL/L (99-107); CREATININE 1.09 MG/DL (0.40-0.90); GLUCOSE 131 MG/DL (70-104); MAGNESIUM 1.9 MG/DL (1.5-2.4); POTASSIUM 4.1 MMOL/L (3.5-5.1); SODIUM 133 MMOL/L (135-145); TOTAL CARBON DIOXIDE 23.4 MMOL/L (24-32); TOTAL PROTEIN 4.6 G/DL (6.4-8.2); eCRCL 32 ML/MIN; eGFR 48 ML/MIN
[2024-10-22 02:31] LABS: BASOPHILS % (AUTO) 0.3 % (0-1); EOSINOPHILS # (AUTO) 0.1 X10'3 (0-0.9); EOSINOPHILS % (AUTO) 1.3 % (0-6); HEMATOCRIT 25.8 % (35.0-45.0); HEMOGLOBIN 8.4 g/dl (12.0-16.0); LYMPHOCYTES # (AUTO) 1.4 X10'3 (1.1-4.8); LYMPHOCYTES % (AUTO) 12.7 % (21-51); MEAN CORPUSCULAR HEMOGLOBIN 25.7 PG (27.0-31.0); MEAN CORPUSCULAR HGB CONC 32.4 g/dL (33.0-36.5); MEAN CORPUSCULAR VOLUME 79.3 FL (78-98); MEAN PLATELET VOLUME 8.9 FL (7.4-10.4); MONOCYTES # (AUTO) 1.6 X10'3 (0-0.9); MONOCYTES % (AUTO) 14.4 % (2-12); NEUTROPHILS # (AUTO) 7.7 X10'3 (1.8-7.7); NEUTROPHILS % (AUTO) 71.3 % (42-75); PLATELET COUNT 134 X10'3 (140-440); RED BLOOD COUNT 3.25 X10'6 (4.20-5.60); RED CELL DISTRIBUTION WIDTH 21.5 % (11.5-14.5); WHITE BLOOD COUNT 10.8 X10'3 (4.5-11.0)
[2024-10-22] MEDS ORDERED: sodium phosphate inj. 30 MMOL in dextrose 5%-water 250 ML IV PRN (03:15)
[2024-10-22] MEDS ORDERED: Neutra Phos packet PO PRN (03:15)
[2024-10-22] MEDS: sodium phosphate inj. 15 MMOL in dextrose 5%-water 250 ML IV PRN (03:43)
[2024-10-22] MEDS: sodium phosphate in D5W IVPB 250 ML IV ONE (03:44)
[2024-10-22] MEDS: digoxin 250mcg (0.25mg) tablet PO SCH (08:31)
--- NOTE | 2024-10-22 12:44 | PROGRESS NOTE- Residence ---
Progress Note - Resident Providers to CC Resident Creating Document: AMY SANCHES ROD, RES ~ Antibiotic Timeout Antibiotic Ordered?: Yes Subjective The patient was seen and examined at bedside today. No new complaints. She said that she feels better. Still in AFib, being digitalized. Objective Vital Signs Date Time Temp Pulse Resp B/P (MAP) Pulse Ox O2 Delivery O2 Flow Rate FiO2 10/22/24 10:10 14 10/22/24 08:31 100 10/22/24 05:57 98.2 132/63 (86) 99 10/21/24 23:23 Room Air* 0 21 Result Diagram: 10/22/24 0148 10/22/24 0148 Elderly female, awake and alert, no acute distress. HEENT: Conjunctiva pink, Sclera clear, Mucus Membranes moist. Neck: Supple without masses and tenderness. Resp: Bilateral equal air entry present, mild crackles heard bilaterally Heart: Tachycardia, Irregular rate and rhythm, normal S1 and S2 without murmur Abdomen: Soft and non tender no organomegaly Extremities: Right lower extremity groin, leg and foot covered in surgical bandage Skin: Warm and Dry. Neurological: Speech is clear, alert, and oriented x 4, no gross neurological deficits Coagulation Studies Laboratory Tests Test 10/19/24 15:00 10/19/24 17:15 Prothrombin Time 16.3 SECONDS (9.0-12.0) H INR International Normalized Ratio 1.7 INR Activated Partial Thromboplast Time SECONDS (22-32) APTT (Heparin Protocol) 33 SECONDS (45-75) L Coagulation Comments Assessment Assessment An 84 years old female with history of AFib, CHF with reduced ejection fraction, aortic stenosis status post TAVR, sick sinus syndrome status post ppm, coronary artery disease with recent PCI of the proximal LCX on 07/02, presented with nonhealing surgical site wound. She is being admitted into the hospital for further evaluation and management. Plan Plan Right LE graft occlusion, POA s/p graft thrombectomy with revision, 10/19/2024 Wound dehiscence of Fem-pop bypass status post wound debridement, 10/16/2024 Infected surgical site History of femoral popliteal bypass (09/13/2024) Patient is currently in the ICU. Wound care following. Blood cultures negative till date. Wound cultures grew Enterococcus faecalis, Pseudomonas aeruginosa, Corynebacterium striatum, bacteroids fragilis. Infectious diseases on board. Continue IV Zosyn and linezolid. Atrial fibrillation with rapid ventricular rate Patient is currently on IV amiodarone drip and p.o. digoxin. Heart rate ranging in 120s. Continue telemetry monitoring. Continue Eliquis 5 mg b.i.d. Hypertension IV hydralazine p.r.n. Acute exacerbation of CHF with improved ejection, POA, resolved LVEF 45%, moderate MR, [id number] TR. JOSE ARMANDO likely secondary to vasomotor nephropathy, POA Kidney function getting better. Continue IV fluids. Continue to monitor. Iron-deficiency anemia Iron supplementation on discharge. Hypothyroidism TSH 20.93, normal free T4 and T3. Continue home levothyroxine 25 mcg. CAD s/p LCA stenting (06/2024) Aortic stenosis s/p TAVR Sick sinus syndrome s/p ppm Started the patient on Plavix. Continue outpatient cardiology follow up. Code Status: Full code DVT prophylaxis: Eliquis Analgesia/sedation: Tylenol Line/tube: Peripheral Nutrition: Heart healthy diet Prognosis: Guarded Disposition: Patient is currently in the ICU. Management as per Dr. Handley. Amy Sanches MD Internal Medicine Resident, PGY-1 Date of Service: Oct 22, 2024 Billing Provider: CARO VALLECILLO MD Common Visit Codes: [id number] INP/OBS CARE(HIGH) AMY SANCHES, RES Oct 22, 2024 12:44 CARO VALLECILLO MD Oct 23, 2024 12:00
[2024-10-22] MEDS: amiodarone 200mg tablet PO SCH (14:13)
[2024-10-22 16:07] LABS: MAGNESIUM 2.6 MG/DL (1.5-2.4)
--- NOTE | 2024-10-22 16:53 | PATHOLOGY REPORT ---
[facility] [address] [place] [address] SURGICAL PATHOLOGY REPORT CaseNumber: [id number] Surgeon:Lore Acevedo CLINICAL INFORMATION CLINICAL INFORMATION: Right lower extremity dehiscence of surgical wound. DIAGNOSIS DIAGNOSIS: RIGHT LEG; THROMBECTOMY - BLOOD CLOT, RECENT. - CLINICALLY THROMBUS. MICROSCOPIC DESCRIPTION MICROSCOPIC DESCRIPTION: Three slides are examined. Present is blood clot, which shows minimal organi zation in the form of fibrin and neutrophilic layering. Significant fibrous ingrowth is not identifie d. Neoplasia is not identified. (jf) GROSS DESCRIPTION GROSS DESCRIPTION: Received in a container of formalin labeled with the patient's name, number, and " R leg graft thrombus" is a 4 x 4 x 0.7 cm aggregate of cylinders of cosby tissue and clotted blood. Re presentative sections are submitted as A1-A3. The time at which the specimen was removed was 1355. Th e time at which the specimen was placed in formalin was 1520. (isma) Electronically signed by: Chuckie Haney M.D. 10/22/2024 4:15:00 PM
--- NOTE | 2024-10-22 17:14 | PROGRESS NOTE ---
Progress Note ID Providers to CC ~ Progress Note Progress Note: pain improving/vss/RLE well perfused/labs noted a/p 1. s/p revision right fem tib bypass-doing well/cont pt HENRRY RILEY MD Oct 22, 2024 17:14
[2024-10-23] VITALS (19 sets, daily range): BP systolic 109–186; BP diastolic 48–77; PULSE 64–107; RESP 11–22; TEMP 97.4; O2SAT 94–100
[2024-10-23 02:19] LABS: BASOPHILS % (AUTO) 0.4 % (0-1); EOSINOPHILS # (AUTO) 0.3 X10'3 (0-0.9); HEMATOCRIT 26.6 % (35.0-45.0); HEMOGLOBIN 8.5 g/dl (12.0-16.0); LYMPHOCYTES % (AUTO) 9.6 % (21-51); MEAN CORPUSCULAR HEMOGLOBIN 25.5 PG (27.0-31.0); MEAN CORPUSCULAR HGB CONC 32.2 g/dL (33.0-36.5); MEAN CORPUSCULAR VOLUME 79.4 FL (78-98); MEAN PLATELET VOLUME 8.2 FL (7.4-10.4); MONOCYTES # (AUTO) 1.2 X10'3 (0-0.9); MONOCYTES % (AUTO) 12.3 % (2-12); NEUTROPHILS # (AUTO) 7.5 X10'3 (1.8-7.7); NEUTROPHILS % (AUTO) 74.7 % (42-75); PLATELET COUNT 144 X10'3 (140-440); RED BLOOD COUNT 3.35 X10'6 (4.20-5.60); RED CELL DISTRIBUTION WIDTH 22.4 % (11.5-14.5)
[2024-10-23 02:43] LABS: ALANINE AMINOTRANSFERASE 9 U/L (12-78); ALBUMIN 1.6 G/DL (3.4-5.0); ALBUMIN/GLOBULIN RATIO 0.5 (1.1-1.5); ALKALINE PHOSPHATASE 114 IU/L (46-116); ANION GAP 10 (8-16); ASPARTATE AMINO TRANSFERASE 18 U/L (10-37); BILIRUBIN,TOTAL 0.8 MG/DL (0.1-1.0); BLOOD UREA NITROGEN 18 MG/DL (7-18); BUN/CREATININE RATIO 21.2 (10.0-20.0); CALCIUM 6.9 MG/DL (8.5-10.1); CHLORIDE 104 MMOL/L (99-107); CREATININE 0.85 MG/DL (0.40-0.90); GLUCOSE 143 MG/DL (70-104); MAGNESIUM 2.1 MG/DL (1.5-2.4); PHOSPHORUS 2.3 MG/DL (2.3-4.5); POTASSIUM 3.8 MMOL/L (3.5-5.1); SODIUM 136 MMOL/L (135-145); TOTAL CARBON DIOXIDE 22.3 MMOL/L (24-32); TOTAL PROTEIN 4.7 G/DL (6.4-8.2); eCRCL 41 ML/MIN; eGFR 63 ML/MIN
--- NOTE | 2024-10-23 09:15 | PROGRESS NOTE ---
Progress Note Dictate Providers to CC ~ Subjective Subjective: Doing a bit better. Still in ICU. Still pretty weak but working with PT. Objective Objective: GENERAL: She is a pleasant, elderly female, sitting up in bed, looking stable. LUNGS: Clear to auscultation bilaterally. HEART: Irregularly irregular with normal rate ABDOMEN: Obese, soft, and nontender. She does have a wound VAC in place at the right groin. EXTREMITIES: The right calf area is bandaged. The right foot appears to be perfused and she does have some scattered areas of superficial eschar. Left foot appears to be perfused at this time. Lab Results: 10/23/24 02010/23/24204 Problem\Assessment\Plan Additional Plan 1. Postoperative infection following recent vascular surgery to deal with an ischemic right lower extremity. Original procedure was right femoral to popliteal bypass (vs. anterior tibial bypass) s/p debridement with sartorius muscle flap Polymicrobial infection with Pseudomonas, Enterococcus, Corynebacterium striatum, and Bacteroides 2. Diabetes mellitus type 2 3. Aortic stenosis s/p recent LORENA 4. Atrial fibrillation with rapid ventricular rate 5. JOSE ARMANDO - resolved Continue Zosyn Continue linezolid It is unclear if she is going home or rehab soon Oral regimen is not possible given that quinolone is problematic with amiodarone Will need to see if she has coverage for home IV antibiotics if going home Wound care Need to change CVC to PICC NADIRA KUMAR MD Oct 23, 2024 09:15
--- NOTE | 2024-10-23 16:55 | PROGRESS NOTE ---
Progress Note ID Providers to CC ~ Progress Note Progress Note: doing well/transfer to tele HENRRY RILEY MD Oct 23, 2024 16:55
--- NOTE | 2024-10-23 17:36 | PROGRESS NOTE- Residence ---
Progress Note - Resident Providers to CC Resident Creating Document: AMY SANCHES RORYLILY, RES ~ Antibiotic Timeout Antibiotic Ordered?: Yes Subjective The patient was seen and examined at bedside today. No new complaints. Looks tired. She received wound care this morning. Her amiodarone drip has been discontinued and transitioned to p.o. Objective Vital Signs Date Time Temp Pulse Resp B/P (MAP) Pulse Ox O2 Delivery O2 Flow Rate FiO2 10/23/24 15:19 20 10/23/24 13:15 89 10/23/24 12:00 98.4 151/53 (85) 99 Room Air 10/23/24 07:40 0 21 Result Diagram: 10/23/24 0205 10/23/24 020 Elderly female, awake and alert, no acute distress. HEENT: Conjunctiva pink, Sclera clear, Mucus Membranes moist. Neck: Supple without masses and tenderness. Resp: Bilateral equal air entry present, mild crackles heard bilaterally Heart: Tachycardia, Irregular rate and rhythm, normal S1 and S2 without murmur Abdomen: Soft and non tender no organomegaly Extremities: Right lower extremity groin, leg and foot covered in surgical bandage Skin: Warm and Dry. Neurological: Speech is clear, alert, and oriented x 4, no gross neurological deficits Coagulation Studies Laboratory Tests Test 10/19/24 15:00 10/19/24 17:15 Prothrombin Time 16.3 SECONDS (9.0-12.0) H INR International Normalized Ratio 1.7 INR Activated Partial Thromboplast Time SECONDS (22-32) APTT (Heparin Protocol) 33 SECONDS (45-75) L Coagulation Comments Assessment Assessment An 84 years old female with history of AFib, CHF with reduced ejection fraction, aortic stenosis status post TAVR, sick sinus syndrome status post ppm, coronary artery disease with recent PCI of the proximal LCX on 07/02, presented with nonhealing surgical site wound. She is being admitted into the hospital for further evaluation and management. Plan Plan Right LE graft occlusion, POA s/p graft thrombectomy with revision, 10/19/2024 Wound dehiscence of Fem-pop bypass status post wound debridement, 10/16/2024 Infected surgical site History of femoral popliteal bypass (09/13/2024) Wound cultures grew Enterococcus faecalis, Pseudomonas aeruginosa, Corynebacterium striatum, bacteroids fragilis. Blood cultures negative till date. Infectious diseases, Dr. Burt on board. Continue IV Zosyn and linezolid. Wound care following. Atrial fibrillation with rapid ventricular rate IV amiodarone discontinued. Continue amiodarone p.o. 400 mg b.i.d. and digoxin 250 mcg daily. Continue telemetry monitoring. Continue Eliquis 5 mg b.i.d. Hypertension IV hydralazine p.r.n. Acute exacerbation of CHF with improved ejection, POA, resolved LVEF 45%, moderate MR, [id number] TR. JOSE ARMANDO likely secondary to vasomotor nephropathy, POA Kidney function getting better. Continue IV fluids. Continue to monitor. Iron-deficiency anemia Iron supplementation on discharge. Hypothyroidism TSH 20.93, normal free T4 and T3. Continue home levothyroxine 25 mcg. CAD s/p LCA stenting (06/2024) Aortic stenosis s/p TAVR Sick sinus syndrome s/p ppm Started the patient on Plavix. Continue outpatient cardiology follow up. Code Status: Full code DVT prophylaxis: Eliquis Analgesia/sedation: Tylenol Line/tube: Peripheral Nutrition: Heart healthy diet Prognosis: Guarded Disposition: Management as per Dr. Handley. Amy Sanches MD Internal Medicine Resident, PGY-1 PATIENT IS SEEN AND EXAMINED WITH RESIDENT AT BEDSIDE Date of Service: Oct 23, 2024 Billing Provider: CARO VALLECILLO MD Common Visit Codes: [id number] INP/OBS CARE(HIGH) AMY SANCHES, RES Oct 23, 2024 17:36 CARO VALLECILLO MD Oct 27, 2024 10:08
[2024-10-24] VITALS (9 sets, daily range): BP systolic 133–158; BP diastolic 60–99; PULSE 76–106; RESP 12–19; TEMP 97.5–97.7; O2SAT 95–98
[2024-10-24 05:24] LABS: BASOPHILS % (AUTO) 0.5 % (0-1); EOSINOPHILS # (AUTO) 0.4 X10'3 (0-0.9); EOSINOPHILS % (AUTO) 4.1 % (0-6); HEMATOCRIT 28.2 % (35.0-45.0); LYMPHOCYTES # (AUTO) 0.9 X10'3 (1.1-4.8); MEAN CORPUSCULAR HEMOGLOBIN 25.9 PG (27.0-31.0); MEAN CORPUSCULAR HGB CONC 31.9 g/dL (33.0-36.5); MEAN CORPUSCULAR VOLUME 81.2 FL (78-98); MEAN PLATELET VOLUME 8.9 FL (7.4-10.4); MONOCYTES # (AUTO) 1.3 X10'3 (0-0.9); MONOCYTES % (AUTO) 14.6 % (2-12); NEUTROPHILS % (AUTO) 69.8 % (42-75); PLATELET COUNT 161 X10'3 (140-440); RED BLOOD COUNT 3.47 X10'6 (4.20-5.60); RED CELL DISTRIBUTION WIDTH 22.6 % (11.5-14.5); WHITE BLOOD COUNT 8.6 X10'3 (4.5-11.0)
[2024-10-24 05:45] LABS: ALANINE AMINOTRANSFERASE 10 U/L (12-78); ALBUMIN 1.6 G/DL (3.4-5.0); ALBUMIN/GLOBULIN RATIO 0.5 (1.1-1.5); ALKALINE PHOSPHATASE 110 IU/L (46-116); ANION GAP 8 (8-16); ASPARTATE AMINO TRANSFERASE 23 U/L (10-37); BILIRUBIN,TOTAL 1.2 MG/DL (0.1-1.0); BLOOD UREA NITROGEN 14 MG/DL (7-18); BUN/CREATININE RATIO 16.5 (10.0-20.0); CHLORIDE 102 MMOL/L (99-107); CREATININE 0.85 MG/DL (0.40-0.90); GLUCOSE 118 MG/DL (70-104); POTASSIUM 3.7 MMOL/L (3.5-5.1); SODIUM 133 MMOL/L (135-145); TOTAL CARBON DIOXIDE 22.9 MMOL/L (24-32); TOTAL PROTEIN 4.8 G/DL (6.4-8.2); eCRCL 41 ML/MIN; eGFR 63 ML/MIN
--- NOTE | 2024-10-24 09:51 | PROGRESS NOTE ---
Progress Note Dictate Providers to CC ~ Subjective Subjective: She is currently doing well. Her wound VAC was changed yesterday. She is supposed to be going to rehab soon. Central venous catheter removed. Objective Objective: GENERAL: She is a pleasant, elderly female, lying in bed, looking stable. LUNGS: Clear to auscultation bilaterally. HEART: Irregularly irregular with normal rate ABDOMEN: Obese, soft, and nontender. She does have a wound VAC in place at the right groin. EXTREMITIES: The right calf area is bandaged. The right foot appears to be perfused and she does have some scattered areas of superficial eschar. Lab Results: 10/24/24 0500 10/24/24 0500 Problem\Assessment\Plan Additional Plan 1. Postoperative infection following recent vascular surgery to deal with an ischemic right lower extremity. Original procedure was right femoral to popliteal bypass (vs. anterior tibial bypass) s/p debridement with sartorius muscle flap 10/16 Polymicrobial infection with Pseudomonas, Enterococcus, Corynebacterium striatum, and Bacteroides 2. Diabetes mellitus type 2 3. Aortic stenosis s/p recent LORENA 4. Atrial fibrillation with rapid ventricular rate - controlled 5. JOSE ARMANDO - resolved Continue Zosyn Change linezolid to daptomycin Continue both antibiotics until 11/27 Wound care Needs PICC She can follow-up with me in the outpatient setting NADIRA KUMAR MD Oct 24, 2024 09:51
[2024-10-24] MEDS: DAPTOmycin inj. 500 MG in normal saline 100ml IV soln 100 ML IV SCH (11:07)
--- NOTE | 2024-10-24 17:33 | PROGRESS NOTE ---
Progress Note ID Providers to CC ~ Progress Note Progress Note: doing well/rehab monday HENRRY RILEY MD Oct 24, 2024 17:33
--- NOTE | 2024-10-24 18:19 | PROGRESS NOTE- Residence ---
Progress Note - Resident Providers to CC Resident Creating Document: AMY SANCHES ROD, RES ~ Antibiotic Timeout Antibiotic Ordered?: Yes Subjective The patient was seen and examined at bedside today. No new complaints. Discontinued IV fluids. Patient will be discharged to rehab center tomorrow. Objective Vital Signs Date Time Temp Pulse Resp B/P (MAP) Pulse Ox O2 Delivery O2 Flow Rate FiO2 10/24/24 17:49 18 10/24/24 15:25 97.6 93 157/84 (108) 96 Room Air 10/24/24 08:25 0 21 Result Diagram: 10/24/24 0500 10/24/24 0500 Elderly female, awake and alert, no acute distress. HEENT: Conjunctiva pink, Sclera clear, Mucus Membranes moist. Neck: Supple without masses and tenderness. Resp: Bilateral equal air entry present, mild crackles heard bilaterally Heart: Tachycardia, Irregular rate and rhythm, normal S1 and S2 without murmur Abdomen: Soft and non tender no organomegaly Extremities: Right lower extremity groin, leg and foot covered in surgical bandage, left leg edema 2+ Skin: Warm and Dry. Neurological: Speech is clear, alert, and oriented x 4, no gross neurological deficits Coagulation Studies Laboratory Tests Test 10/19/24 15:00 10/19/24 17:15 Prothrombin Time 16.3 SECONDS (9.0-12.0) H INR International Normalized Ratio 1.7 INR Activated Partial Thromboplast Time SECONDS (22-32) APTT (Heparin Protocol) 33 SECONDS (45-75) L Coagulation Comments Assessment Assessment An 84 years old female with history of AFib, CHF with reduced ejection fraction, aortic stenosis status post TAVR, sick sinus syndrome status post ppm, coronary artery disease with recent PCI of the proximal LCX on 07/02, presented with nonhealing surgical site wound. She is being admitted into the hospital for further evaluation and management. Plan Plan Right LE graft occlusion, POA s/p graft thrombectomy with revision, 10/19/2024 Wound dehiscence of Fem-pop bypass status post wound debridement, 10/16/2024 Infected surgical site History of femoral popliteal bypass (09/13/2024) Wound cultures grew Enterococcus faecalis, Pseudomonas aeruginosa, Corynebacterium striatum, bacteroids fragilis. Blood cultures negative till date. Infectious diseases, Dr. Burt on board. Discontinued linezolid. Started the patient on IV daptomycin. Stop date 11/27/2024. Continue Zosyn. Wound care following. CHF with improved ejection fraction EF 45%, 2+ leg edema present. Lasix 40 mg b.i.d. Atrial fibrillation with rapid ventricular rate IV amiodarone discontinued. Continue amiodarone p.o. 400 mg b.i.d. and digoxin 250 mcg daily. Continue telemetry monitoring. Continue Eliquis 5 mg b.i.d. Hypertension IV hydralazine p.r.n. Acute exacerbation of CHF with improved ejection, POA, resolved LVEF 45%, moderate MR, [id number] TR. JOSE ARMANDO likely secondary to vasomotor nephropathy, POA Kidney function getting better. Continue IV fluids. Continue to monitor. Iron-deficiency anemia Iron supplementation on discharge. Hypothyroidism TSH 20.93, normal free T4 and T3. Continue home levothyroxine 25 mcg. CAD s/p LCA stenting (06/2024) Aortic stenosis s/p TAVR Sick sinus syndrome s/p ppm Started the patient on Plavix. Continue outpatient cardiology follow up. Code Status: Full code DVT prophylaxis: Eliquis Analgesia/sedation: Tylenol Line/tube: Peripheral Nutrition: Heart healthy diet Prognosis: Guarded Disposition: Management as per Dr. Handley. Anticipate discharge tomorrow to LTAC. Amy Sanches MD Internal Medicine Resident, PGY-1 Date of Service: Oct 24, 2024 Billing Provider: KAMARI ZAPATA MD Common Visit Codes: [id number] INP/OBS CARE(HIGH) AMY SANCHES, RES Oct 24, 2024 18:19 KAMARI ZAPATA MD Oct 29, 2024 17:06
[2024-10-24] MEDS: furosemide 40mg/4ml inj IV SCH (21:39)
[2024-10-25] VITALS (7 sets, daily range): BP systolic 134–143; BP diastolic 59–87; PULSE 72–99; RESP 14–18; TEMP 97.5–98.2; O2SAT 94–100
--- NOTE | 2024-10-25 17:07 | DISCHARGE SUMMARY-Residence ---
Discharge Summary Providers to CC Resident Creating Document: EVERETTE COLLINS ZE, RES ~ Discharge Summary Admission Diagnosis: rle ali with graft occlusion Hospital Course DATE OF ADMISSION: 10/15/2024 DATE OF DISCHARGE: 10/25/24 Discharge Diagnosis\Comment: Right LE graft occlusion, POA s/p graft thrombectomy with revision, 10/19/2024 Wound dehiscence of Fem-pop bypass status post wound debridement, 10/16/2024 Infected surgical site History of femoral popliteal bypass (09/13/2024) CHF with improved ejection fraction Atrial fibrillation with rapid ventricular rate Hypertension Acute exacerbation of CHF with improved ejection, POA, resolved JOSE ARMANDO likely secondary to vasomotor nephropathy, POA Iron-deficiency anemia Hypothyroidism CAD s/p LCA stenting (06/2024) Aortic stenosis s/p TAVR Sick sinus syndrome s/p ppm Operations\Procedures: Right LE graft occlusion, POA s/p graft thrombectomy with revision, 10/19/2024 Wound dehiscence of Fem-pop bypass status post wound debridement, 10/16/2024 Consultants: Dr. Handley, Dr. Burt Complications: None Condition on DC: Stable for transfer Discharge Summary: History of present illness: An 84 years old female with history of AFib, CHF with reduced ejection fraction, aortic stenosis status post TAVR, sick sinus syndrome status post ppm, coronary artery disease with recent PCI of the proximal LCX on 07/02, presented with nonhealing surgical site wound. She is being admitted into the hospital for further evaluation and management. Hospital course: History of femoral popliteal bypass (09/13/2024), Infected surgical site. Wound dehiscence of Fem-pop bypass status post wound debridement, 10/16/2024, Right LE graft occlusion, POA s/p graft thrombectomy with revision, 10/19/2024. Wound cultures grew Enterococcus faecalis, Pseudomonas aeruginosa, Corynebacterium striatum, bacteroids fragilis. Blood cultures negative till date. Infectious diseases, Dr. Burt on board. Discontinued linezolid. Started the patient on IV daptomycin. Stop date 11/27/2024. Continue Zosyn. Wound care following. CHF with improved ejection fraction. EF 45%, 2+ leg edema present. Lasix 40 mg b.i.d. Atrial fibrillation with rapid ventricular rate. IV amiodarone discon tinued. Continue amiodarone p.o. 400 mg b.i.d. and digoxin 250 mcg daily. Continue Eliquis 5 mg b.i.d. Hypertension, IV hydralazine p.r.n. Acute exacerbation of CHF with improved ejection, POA, resolved. LVEF 45%, moderate MR, [id number] TR. JOSE ARMANDO likely secondary to vasomotor nephropathy, POA. Kidney function getting better. Continue IV fluids. Iron-deficiency anemia. Iron supplementation on discharge. Hypothyroidism. TSH 20.93, normal free T4 and T3. Continue home levothyroxine 25 mcg. CAD s/p LCA stenting (06/2024). Aortic stenosis s/p TAVR Sick sinus syndrome s/p ppm. Started the patient on Plavix. outpatient cardiology follow up. Vital Signs Date Time Temp Pulse Resp B/P (MAP) Pulse Ox O2 Delivery O2 Flow Rate FiO2 10/25/24 11:56 18 10/25/24 11:37 97.6 81 136/71 (92) 96 Room Air 10/25/24 09:30 0.0 21 Laboratory Tests Test 10/24/24 05:00 White Blood Count 8.6 X10'3 Red Blood Count 3.47 X10'6 Hemoglobin 9.0 g/dl Hematocrit 28.2 % Mean Corpuscular Volume 81.2 FL Mean Corpuscular Hemoglobin 25.9 PG Mean Corpuscular Hemoglobin Concent 31.9 g/dL Red Cell Distribution Width 22.6 % Platelet Count 161 X10'3 Mean Platelet Volume 8.9 FL Neutrophils (%) (Auto) 69.8 % Lymphocytes (%) (Auto) 11.0 % Monocytes (%) (Auto) 14.6 % Eosinophils (%) (Auto) 4.1 % Basophils (%) (Auto) 0.5 % Neutrophils # (Auto) 6.0 X10'3 Lymphocytes # (Auto) 0.9 X10'3 Monocytes # (Auto) 1.3 X10'3 Eosinophils # (Auto) 0.4 X10'3 Basophils # (Auto) 0.0 X10'3 CBC Comment Sodium Level 133 MMOL/L Potassium Level 3.7 MMOL/L Chloride Level 102 MMOL/L Carbon Dioxide Level 22.9 MMOL/L Anion Gap 8 Blood Urea Nitrogen 14 MG/DL Creatinine 0.85 MG/DL Estimated GFR/1.73 m2 63 ML/MIN BUN/Creatinine Ratio 16.5 Glucose Level 118 MG/DL Calcium Level 7.0 MG/DL Total Bilirubin 1.2 MG/DL Aspartate Amino Transf (AST/SGOT) 23 U/L Alanine Aminotransferase (ALT/SGPT) 10 U/L Alkaline Phosphatase 110 IU/L Total Protein 4.8 G/DL Albumin 1.6 G/DL Globulin 3.2 G/DL Albumin/Globulin Ratio 0.5 Chemistry Comments Imaging: CTA aorta with runoff: 1. Postoperative changes of bypass graft from the proximal right superficial femoral artery to the popliteal artery which is patent. 2. Loculated fluid collections containing gas in the right inguinal region and adjacent to the proximal bypass graft which could reflect abscess formation. 3. The right trifurcation arteries appear patent although more distally blood flow appears more diminutive which could be due to timing of bolus contrast. 4. Occlusion of the left superficial femoral artery at the origin and is occluded throughout its course. Minimal reconstitution of blood flow in the left popliteal artery 5. Diminutive blood flow throughout the left anterior tibial artery which could be due to multifocal stenoses or occlusions. 6. Blood Flow is seen in the left posterior tibial and peroneal arteries with runoff to the ankle and foot. 7. Patent aortoiliac vessels with [id number] atherosclerotic plaque. 8. 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 9. Moderate stenosis of the proximal left renal artery by atherosclerotic plaq ue. 10. Mild cardiomegaly, small pericardial effusion, small to moderate left pleural effusion and trace right pleural effusion, body wall edema, and subcutaneous edema in the bilateral lower extremities which could be due to CHF/volume overload. 11. Hepatic steatosis. 12. Multifocal left renal cortical scarring and decreased enhancement as well as asymmetric atrophy of the left kidney. Chest x-ray: 1. Cardiomegaly and small left pleural effusion. Echocardiogram: Normal LV size and wall thickness. Overall systolic function is moderately decreased. LVEF is 45%. Right ventricle is moderately dilated with decreased function. Left atrium is mildly dilated. Right atrium is mildly dilated. Pacemaker lead is present in the right heart. 23 mm Franklin Keysha 3 Ultra Resilia bioprosthetic TAVR appears well seated with normal function. Peak / mean gradients of 18 / 11 mmHG. Peak velocity is measured at 2.09 m/sec. Mild mitral annular calcification without stenosis. Moderate regurgitation. The tricuspid valve is normal in structure with moderate to severe regurgitation. Trace loculated pericardial effusion present without hemodynamic compromise. Best seen in PSAX view. Pleural effusion present. Arterial ultrasound: Extremely limited examination secondary to recent surgery and edema in the right leg. The right common femoral artery, deep femoral artery, [place] superficial femoral artery is not visualized. No flow is visualized in the right posterior tibial artery or dorsalis pedis artery. Unable to visualize the bypass graft. Vascular ultrasound: No right femoropopliteal venous thrombosis. Contralateral common femoral vein is patent. Arterial ultrasound: The waveforms are monophasic wave flow seen in the left common femoral artery and profunda femoral artery. There is high-grade stenosis in the proximal left SFA greater than 80%. Very little flow is detected in the left posterior tibial artery. CRISPIN not performed due to pain and recent surgery. Chest x-ray: Interval placement of a right IJ approach line which terminates in the plane of the SVC. Similar small left pleural effusion with adjacent airspace disease. Vascular ultrasound: Nondiagnostic exam due to noncompressible pedal arteries in the left lower extremity suggesting medial arterial calcification. No pressures obtained in the right lower extremity due to open wounds from recent vascular surgery. Discharge instructions: Follow up with your PCP, Dr. Handley and casing sewer in a week. Follow up with Dr. Burt in a week. Fax CBC, CMP, creatinine kinase levels every two weeks to Dr. Burt office Follow up with wound care, regular wound dressing. Return to the ED if you have worsening pain or swelling in the right leg/fever. *Problems/Diagnosis: (1) Surgical site infection Status: Acute (2) Peripheral arterial disease Status: Acute (3) Pain of right lower extremity Status: Acute Total Time Spent on D/C: > 30 Minutes Date of Service: Oct 25, 2024 Billing Provider: KAMARI ZAPATA MD Common Visit Codes: [id number] DISCH DAY >30min EVERETTE COLLINS, RES Oct 25, 2024 12:36 KAMARI ZAPTAA MD Oct 29, 2024 17:06
== END 2024-10-25 15:34 | DRG 856 ==
LOC: ER 11:19 → ED HOLD 19:12 → UNDOADMIN 19:12 → ED HOLD 20:08 → ORTHO 4S 23:40 → ED HOLD 23:40 → ORTHO 4S 10-16 06:05 → PCU 3S 10-16 06:05 → CICU 2S 10-19 15:50 → PCU 3S 10-23 13:09
PROVIDERS: ADMIT Internal Medicine Pulmonary Disease; ATTEND Family Medicine
PROC: B4201ZZ Computerized Tomography (CT Scan) of Abdominal Aorta using Low Osmolar Contrast (ICD-10-PCS; 2024-10-15)
PROC: B4241ZZ Computerized Tomography (CT Scan) of Superior Mesenteric Artery using Low Osmolar Contrast (ICD-10-PCS; 2024-10-15)
PROC: B4281ZZ Computerized Tomography (CT Scan) of Bilateral Renal Arteries using Low Osmolar Contrast (ICD-10-PCS; 2024-10-15)
PROC: B42C1ZZ Computerized Tomography (CT Scan) of Pelvic Arteries using Low Osmolar Contrast (ICD-10-PCS; 2024-10-15)
PROC: B42H1ZZ Computerized Tomography (CT Scan) of Bilateral Lower Extremity Arteries using Low Osmolar Contrast (ICD-10-PCS; 2024-10-15)
PROC: B4211ZZ Computerized Tomography (CT Scan) of Celiac Artery using Low Osmolar Contrast (ICD-10-PCS; 2024-10-15)
PROC: B42H1ZZ Computerized Tomography (CT Scan) of Bilateral Lower Extremity Arteries using Low Osmolar Contrast (ICD-10-PCS; 2024-10-15)
PROC: 0JBC0ZZ Excision of Pelvic Region Subcutaneous Tissue and Fascia, Open Approach (ICD-10-PCS; 2024-10-16)
PROC: 0KXQ0ZZ Transfer Right Upper Leg Muscle, Open Approach (ICD-10-PCS; 2024-10-16)
PROC: 0JBN0ZZ Excision of Right Lower Leg Subcutaneous Tissue and Fascia, Open Approach (ICD-10-PCS; principal; 2024-10-16 12:52)
PROC: 04CK0ZZ Extirpation of Matter from Right Femoral Artery, Open Approach (ICD-10-PCS; 2024-10-19)
PROC: 04CP0ZZ Extirpation of Matter from Right Anterior Tibial Artery, Open Approach (ICD-10-PCS; 2024-10-19)
PROC: 041K09Q Bypass Right Femoral Artery to Lower Extremity Artery with Autologous Venous Tissue, Open Approach (ICD-10-PCS; 2024-10-19)
PROC: 06BQ0ZZ Excision of Left Saphenous Vein, Open Approach (ICD-10-PCS; 2024-10-19)
PROC: 30233N1 Transfusion of Nonautologous Red Blood Cells into Peripheral Vein, Percutaneous Approach (ICD-10-PCS; 2024-10-19)
PROC: 02HV33Z Insertion of Infusion Device into Superior Vena Cava, Percutaneous Approach (ICD-10-PCS; 2024-10-19)
DX: T81.41XA Infection following a procedure, superficial incisional surgical site, initial encounter (principal); I50.23 Acute on chronic systolic (congestive) heart failure; N17.0 Acute kidney failure with tubular necrosis; T82.898A Other specified complication of vascular prosthetic devices, implants and grafts, initial encounter; T81.31XA Disruption of external operation (surgical) wound, not elsewhere classified, initial encounter; I13.0 Hypertensive heart and chronic kidney disease with heart failure and stage 1 through stage 4 chronic kidney disease, or unspecified chronic kidney disease; E11.51 Type 2 diabetes mellitus with diabetic peripheral angiopathy without gangrene; E11.22 Type 2 diabetes mellitus with diabetic chronic kidney disease; N18.9 Chronic kidney disease, unspecified; G47.33 Obstructive sleep apnea (adult) (pediatric); I48.0 Paroxysmal atrial fibrillation; D50.8 Other iron deficiency anemias; E78.5 Hyperlipidemia, unspecified; I25.10 Atherosclerotic heart disease of native coronary artery without angina pectoris; Y83.8 Other surgical procedures as the cause of abnormal reaction of the patient, or of later complication, without mention of misadventure at the time of the procedure; Z88.5 Allergy status to narcotic agent; Z79.899 Other long term (current) drug therapy; Z79.01 Long term (current) use of anticoagulants; Y92.89 Other specified places as the place of occurrence of the external cause; Z90.710 Acquired absence of both cervix and uterus; Z90.49 Acquired absence of other specified parts of digestive tract; Z95.0 Presence of cardiac pacemaker; Z95.2 Presence of prosthetic heart valve; Z95.5 Presence of coronary angioplasty implant and graft
CPT/HCPCS: 36415; 36430; 71045; 73590; 75635; 80048; 80053; 80202; 82948; 83036; 83540; 83550; 83605; 83735; 83880; 84100; 84132; 84145; 84439; 84443; 84450; 84460; 84480; 85007; 85008; 85025; 85027; 85610; 85730; 86885; 86900; 86901; 86920; 87040; 87070; 87075; 87076; 87077; 87081; 87102; 87185; 87186; 88304; 93005; 93306; 93922; 93926; 93971; 94760; 96365; 97110; 97161; 97530; 99285; A4215; A4314; A4615; A4618; A4649; A5200; A6212; A6213; A6222; A6223; A6253; A6258; A6402; A6446; A6449; A7000; G0378; J0282; J0360; J0690; J0878; J1100; J1160; J1171; J1644; J1885; J1938; J2003; J2020; J2250; J2270; J2371; J2405; J2543; J2704; J2710; J2720; J3010; J3370; J3475; J3480; J3490; J7030; J7040; J7060; J7120; P9016; P9045; Q9967